=== PATIENT | male | born 1940 | race Caucasian/White ===

== ENCOUNTER 2018-02-26 17:47 | Inpatient (IN) | payer MEDICARE, MEDICAID ==
[~2018-02-26] VITALS: Ht 177.8 cm; Wt 88.0 kg
--- OUTSIDE RECORDS SUMMARY | 2018-02-26 17:59 | XMS REPORT ---
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 Active 28215633 Problem Gastroesophageal reflux disease, esophagitis presence not specified K21.9 Active 164138032 Problem Dementia without behavioral disturbance, unspecified dementia type F03.90 Active 85065346 Problem Type 2 diabetes mellitus with hypoglycemia without coma, 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 E11.649 Active 22594293 Problem Mixed incontinence urge and stress N39.46 Active 438313277 Problem Essential hypertension I10 Active 94700993 Problem Frequent falls R29.6 Active 452961034 Problem Primary insomnia F51.01 Active 5607956 Problem Chronic atrial fibrillation I48.2 Active 245074115 ALLERGIES No Information ENCOUNTERS Encounter Location Date Diagnosis [facility] [address] [place] [address] [id number] Feb, Anasarca R60.1 and Type 2 diabetes mellitus with hypoglycemia without coma, without long-term current use of insulin E11.649 [place] [address] [place] [id number] [place] [address] 96797- 6140 Feb, Primary insomnia F51.01 [place] [address] [place] [id number] [place] [address] 47289- 6134 Feb, [place] [address] [place] [address] 65854- 1343 Feb, [facility] [address] [place] [address] [id number] Feb, Anasarca R60.1 and Pneumonia of left lower lobe due to infectious organism J18.1 [place] [address] [place] [address] 41903- 6309 Feb, Mixed incontinence urge and stress N39.46 [place] [address] [place] [id number] [place] [address] 98352- 5618 Jan, [place] [address] 48367- 4951 Jan, Primary insomnia F51.01 [facility] [address] [place] [id number] Jan, Cough R05 and Essential hypertension I10 [place] [address] 30611- 9808 Jan, [facility] [address] [place] [id number] Jan, [place] [address] 98598- 6123 Jan, [place] [address] 26747- 2992 Jan, Upper respiratory tract infection, unspecified type J06.9 [place] [address] 95015- 8471 Jan, [facility] [address] [place] [id number] Dec, Impacted cerumen of both ears H61.23 [place] [address] [place] [id number] [place] [address] 56293- 5778 Dec, [facility] [address] [place] [id number] Dec, Dementia without behavioral disturbance, unspecified dementia type F03.90 [place] [address] [place] [id number] [place] [address] 59333- 2730 Nov, Dementia without behavioral disturbance, unspecified dementia type F03.90 [facility] [address] [place] [id number] Nov, [facility] [address] [place] [id number] Oct, Cough R05 [facility] [address] [place] [id number] [address] 96[address] Oct, Hypokalemia E87.6 [place] [address] [address] 69[address] Oct, [facility] [address] [place] [id number] Oct, Encounter for examination for admission to intermediate Z02.2 ; Frequent falls R29.6 ; Type 2 diabetes mellitus with chronic kidney disease, without long-term current use of insulin, 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 ; Dementia without behavioral disturbance, unspecified dementia type F03.90 ; Renal insufficiency N28.9 ; Essential hypertension I10 ; Chronic atrial fibrillation I48.2 and Gastroesophageal reflux disease, esophagitis presence not specified K21.9 [place] [address] [place] [id number] [address] Oct, [place] [facility] [address] [place] [id number] [address] 8644 Oct, IMMUNIZATIONS No Known Immunizations SOCIAL HISTORY Never Assessed REASON FOR VISIT Edema PLAN OF CARE VITAL SIGNS MEDICATIONS Unknown Medications RESULTS No Results PROCEDURES No Known procedures INSTRUCTIONS MEDICATIONS ADMINISTERED No Known Medications MEDICAL (GENERAL) HISTORY Type Description Date Surgical History No Surgical history information
--- OUTSIDE RECORDS SUMMARY | 2018-02-26 17:59 | XMS REPORT ---
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 Active 45567567 Problem Gastroesophageal reflux disease, esophagitis presence not specified K21.9 Active 962748311 Problem Dementia without behavioral disturbance, unspecified dementia type F03.90 Active 46159494 Problem Type 2 diabetes mellitus with hypoglycemia without coma, 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 E11.649 Active 20214075 Problem Mixed incontinence urge and stress N39.46 Active 845445106 Problem Essential hypertension I10 Active 78868804 Problem Frequent falls R29.6 Active 807531836 Problem Primary insomnia F51.01 Active 0843165 Problem Chronic atrial fibrillation I48.2 Active 844274134 ALLERGIES No Information ENCOUNTERS Encounter Location Date Diagnosis [place] [address] [place] [address] 93749- 5553 Feb, Primary insomnia F51.01 [facility] [address] [place] [id number] Feb, Anasarca R60.1 and Type 2 diabetes mellitus with hypoglycemia without coma, without long-term current use of insulin E11.649 [facility] [address] [place] [id number] [place] [address] 32845- 8764 Feb, Primary insomnia F51.01 [facility] [address] [place] [address] 40000- 0491 Feb, [facility] [address] [place] [id number] [place] [address] 75544- 7595 Feb, [facility] [address] [place] [id number] Feb, Anasarca R60.1 and Pneumonia of left lower lobe due to infectious organism J18.1 [place] [address] [place] [id number] [place] [address] 502959- 6612 Feb, Mixed incontinence urge and stress N39.46 [place] [address] [place] [id number] [place] [address] 19702- 1667 Jan, [place] [address] 47433- 7044 Jan, Primary insomnia F51.01 [facility] [address] [place] [id number] Jan, Cough R05 and Essential hypertension I10 [place] [address] [place] [id number] [place] [address] 54381- 7401 Jan, [facility] [address] [place] [id number] Jan, [place] [address] [place] [id number] [place] [address] 43673- 0413 Jan, [place] [address] 62655- 7460 Jan, Upper respiratory tract infection, unspecified type J06.9 [place] [address] [place] [id number] [place] [address] 96112- 9631 Jan, [facility] [address] [place] [id number] Dec, Impacted cerumen of both ears H61.23 [place] [address] [place] [id number] [place] [address] 80877- 0782 Dec, [facility] [address] [place] [id number] Dec, Dementia without behavioral disturbance, unspecified dementia type F03.90 [place] [address] [place] [address] 45916- 8977 Nov, Dementia without behavioral disturbance, unspecified dementia type F03.90 [facility] [address] [place] [id number] Nov, [facility] [address] [place] [id number] Oct, Cough R05 [place] [address] [place] [address] 047781- 4306 Oct, Hypokalemia E87.6 [place] [address] [place] [id number] [place] [address] 72175- 0895 Oct, [facility] [address] [place] [id number] Oct, Encounter for examination for admission to senior care Z02.2 ; Frequent falls R29.6 ; Type 2 diabetes mellitus with chronic kidney disease, without long-term current use of insulin, 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 ; Dementia without behavioral disturbance, unspecified dementia type F03.90 ; Renal insufficiency N28.9 ; Essential hypertension I10 ; Chronic atrial fibrillation I48.2 and Gastroesophageal reflux disease, esophagitis presence not specified K21.9 [place] [address] [place] [id number] [address]- 1774 Oct, [place] [address] [facility] [id number] [address] 6721 Oct, IMMUNIZATIONS No Known Immunizations SOCIAL HISTORY Never Assessed REASON FOR VISIT Daily weight PLAN OF CARE VITAL SIGNS MEDICATIONS Unknown Medications RESULTS No Results PROCEDURES No Known procedures INSTRUCTIONS MEDICATIONS ADMINISTERED No Known Medications MEDICAL (GENERAL) HISTORY Type Description Date Surgical History No Surgical history information
--- OUTSIDE RECORDS SUMMARY | 2018-02-26 17:59 | XMS REPORT ---
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1 and Pneumonia of left lower lobe due to infectious organism J18.1 [address] [place] [address] 90091- 1975 Feb, Mixed incontinence urge and stress N39.46 [place] [address] [place] [id number] [place] [address] 40693- 1992 Jan, [address] 30542- 7836 Jan, Primary insomnia F51.01 [facility] [place] [id number] Jan, Cough R05 and Essential hypertension I10 [place] [address] [address]- 5408 Jan, [facility] [address] [place] [id number] Jan, [place] [address] [place] [id number] [place] [address] 55925778- 5189 Jan, [place] [address] [place] [id number] [place] [address] 69590- 1667 Jan, Upper respiratory tract infection, unspecified type J06.9 [place] [address] [place] [id number] [place] [address] 37388- 1423 Jan, [facility] [address] [place] [id number] Dec, Impacted cerumen of both ears H61.23 [place] [address] [place] [id number] [place] [address] 99744- 5644 Dec, [facility] [address] [place] [id number] Dec, Dementia without behavioral disturbance, unspecified dementia type F03.90 [place] [address] [place] [address] 39924- 8573 Nov, Dementia without behavioral disturbance, unspecified dementia type F03.90 [facility] [address] [place] [id number] Nov, [facility] [address] [place] [id number] Oct, Cough R05 [place] [address] [place] [address] 94363- 8864 Oct, Hypokalemia E87.6 [place] [address] [place] [address] 85820- 9702 Oct, [facility] [address] [place] [id number] Oct, Encounter for examination for admission to [facility] Z02.2 ; Frequent falls R29.6 ; Type 2 diabetes mellitus with chronic kidney disease, without long-term current use of insulin, 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 ; Dementia without behavioral disturbance, unspecified dementia type F03.90 ; Renal insufficiency N28.9 ; Essential hypertension I10 ; Chronic atrial fibrillation I48.2 and Gastroesophageal reflux disease, esophagitis presence not specified K21.9 [facility] [address] [facility] [id number] [place] [address]- 6627 Oct, [facility] [address] [facility] [id number] [place] [address]- 6889 Oct, IMMUNIZATIONS No Known Immunizations SOCIAL HISTORY Never Assessed REASON FOR VISIT continued cough PLAN OF CARE Activity Details Follow Up prn Reason: VITAL SIGNS MEDICATIONS Medication Instructions Dosage Frequency Start Date End Date Duration Status Sertraline HCl 50 MG Orally Once a day 1 tablet 24h Active Carvedilol 25 MG Orally 2 times a day 1 tablet 12h Active GlyBURIDE 5 mg Orally twice a day 2 tablets 12h Active Multivitamin Adults - Active Rivaroxaban 20 MG Orally Once a day 1 tablet with food 24h Active Tamsulosin HCl 0.4 MG Orally Once a day 1 capsule 24h Active Donepezil HCl 5 MG Orally Once a day 1 tablet at bedtime 24h Active Nystatin 008792 UNIT/GM Externally Twice a day 1 application 12h Active Hydrocodone-Acetaminophen 5-325 MG Orally every 6 hrs 1 tablet as needed 6h Jan, Active Amlodipine Besylate 5 mg Orally Once a day 1 tablet 24h Jan, 30 day(s) Active RESULTS No Results PROCEDURES Procedure Date Ordered Result Body Site Minor complication (15 mins) Jan 29, 2018 INSTRUCTIONS MEDICATIONS ADMINISTERED No Known Medications MEDICAL (GENERAL) HISTORY Type Description Date Surgical History No Surgical history information
--- OUTSIDE RECORDS SUMMARY | 2018-02-26 17:59 | XMS REPORT ---
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 Active 34399071 Problem Gastroesophageal reflux disease, esophagitis presence not specified K21.9 Active 198195220 Problem Dementia without behavioral disturbance, unspecified dementia type F03.90 Active 46872468 Problem Type 2 diabetes mellitus with hypoglycemia without coma, 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 E11.649 Active 63607125 Problem Mixed incontinence urge and stress N39.46 Active 897997557 Problem Essential hypertension I10 Active 88697314 Problem Frequent falls R29.6 Active 999676761 Problem Primary insomnia F51.01 Active 5005199 Problem Chronic atrial fibrillation I48.2 Active 985084695 ALLERGIES No Information ENCOUNTERS Encounter Location Date Diagnosis [facility] [address] [place] [address] [id number] Feb, Anasarca R60.1 and Type 2 diabetes mellitus with hypoglycemia without coma, without long-term current use of insulin E11.649 [place] [address] [place] [id number] [place] [address] 61331- 3935 Feb, Primary insomnia F51.01 [place] [address] [place] [id number] [place] [address] 32028- 9463 Feb, [place] [address] [place] [address] 93400- 2842 Feb, [facility] [address] [place] [address] [id number] Feb, Anasarca R60.1 and Pneumonia of left lower lobe due to infectious organism J18.1 [place] [address] [place] [address] 93039- 4963 Feb, Mixed incontinence urge and stress N39.46 [place] [address] [place] [id number] [place] [address] 10441- 4537 Jan, [place] [address] 96893- 9843 Jan, Primary insomnia F51.01 [facility] [address] [place] [id number] Jan, Cough R05 and Essential hypertension I10 [place] [address] 28776- 5293 Jan, [facility] [address] [place] [id number] Jan, [place] [address] 53489- 4252 Jan, [place] [address] 65442- 1195 Jan, Upper respiratory tract infection, unspecified type J06.9 [place] [address] 95938- 7525 Jan, [facility] [address] [place] [id number] Dec, Impacted cerumen of both ears H61.23 [place] [address] [place] [id number] [place] [address] 91267- 8738 Dec, [facility] [address] [place] [id number] Dec, Dementia without behavioral disturbance, unspecified dementia type F03.90 [place] [address] [place] [id number] [place] [address] 25395- 5247 Nov, Dementia without behavioral disturbance, unspecified dementia type F03.90 [facility] [address] [place] [id number] Nov, [facility] [address] [place] [id number] Oct, Cough R05 [place] [address] [facility] [id number] [address]- 6790 Oct, Hypokalemia E87.6 [place] [address] [place] [id number] [address]- 9563 Oct, [facility] [address] [place] [id number] Oct, Encounter for examination for admission to [facility] Z02.2 ; Frequent falls R29.6 ; Type 2 diabetes mellitus with chronic kidney disease, without long-term current use of insulin, 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 ; Dementia without behavioral disturbance, unspecified dementia type F03.90 ; Renal insufficiency N28.9 ; Essential hypertension I10 ; Chronic atrial fibrillation I48.2 and Gastroesophageal reflux disease, esophagitis presence not specified K21.9 [place] [address] [place] [id number], [place] [address]- 0869 Oct, [place] [address] [place] [id number], [place] [address]- 3438 Oct, IMMUNIZATIONS No Known Immunizations SOCIAL HISTORY Never Assessed REASON FOR VISIT Put med under appropriate Dx PLAN OF CARE VITAL SIGNS MEDICATIONS Medication Instructions Dosage Frequency Start Date End Date Duration Status Tamsulosin HCl 0.4 MG Orally Once a day 1 capsule 24h Active RESULTS No Results PROCEDURES No Known procedures INSTRUCTIONS MEDICATIONS ADMINISTERED No Known Medications MEDICAL (GENERAL) HISTORY Type Description Date Surgical History No Surgical history information
--- OUTSIDE RECORDS SUMMARY | 2018-02-26 17:59 | XMS REPORT ---
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 Active 71831202 Problem Gastroesophageal reflux disease, esophagitis presence not specified K21.9 Active 840097107 Problem Dementia without behavioral disturbance, unspecified dementia type F03.90 Active 58353328 Problem Type 2 diabetes mellitus with hypoglycemia without coma, 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 E11.649 Active 62769283 Problem Mixed incontinence urge and stress N39.46 Active 133936201 Problem Essential hypertension I10 Active 69602729 Problem Frequent falls R29.6 Active 024284893 Problem Primary insomnia F51.01 Active 0845227 Problem Chronic atrial fibrillation I48.2 Active 330539153 ALLERGIES Substance Reaction Event Type Date Status Norvasc anasarca Drug Allergy Feb, Active ENCOUNTERS Encounter Location Date Diagnosis [place] [address] [place] [address] 55284- 9280 Feb, [place] [address] [place] [address] 53939- 5049 Feb, Primary insomnia F51.01 [facility] [address] [place] [id number] Feb, Anasarca R60.1 and Type 2 diabetes mellitus with hypoglycemia without coma, without long-term current use of insulin E11.649 [place] [address] [place] [id number] [address]- 7449 Feb, Primary insomnia F51.01 [place] [address] [place] [id number] [place] [address] 69133- 9126 Feb, [place] [address] 72237- 8587 Feb, [facility] [address] [place] [id number] Feb, Anasarca R60.1 and Pneumonia of left lower lobe due to infectious organism J18.1 [place] [address] 41788- 1349 Feb, Mixed incontinence urge and stress N39.46 [place] [address] 92654- 9441 Jan, [place] [address] 16504- 3870 Jan, Primary insomnia F51.01 [facility] [address] [place] [id number] Jan, Cough R05 and Essential hypertension I10 [place] [address] 38783- 5327 Jan, [facility] [address] [place] [id number] Jan, [place] [address] 47052- 8855 Jan, [place] [address] 43150- 8484 Jan, Upper respiratory tract infection, unspecified type J06.9 [place] [address] 70469- 4379 Jan, [facility] [address] [place] [id number] Dec, Impacted cerumen of both ears H61.23 [place] [address] 10992- 2466 Dec, [facility] [address] [place] [id number] Dec, Dementia without behavioral disturbance, unspecified dementia type F03.90 [place] [address] [place] [id number] [address] 2546 Nov, Dementia without behavioral disturbance, unspecified dementia type F03.90 [facility] [address] [place] [id number] Nov, [facility] [address] [place] [id number] Oct, Cough R05 [place] [address] [place] [address] 26884- 2636 18 Oct, 2017 Hypokalemia E87.6 [place] [address] [place] [id number] [place] [address] 80879- 7880 14 Oct, 2017 [facility] [address] [place] [id number] Oct, Encounter for examination for admission to [facility] Z02.2 ; Frequent falls R29.6 ; Type 2 diabetes mellitus with chronic kidney disease, without long-term current use of insulin, 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 ; Dementia without behavioral disturbance, unspecified dementia type F03.90 ; Renal insufficiency N28.9 ; Essential hypertension I10 ; Chronic atrial fibrillation I48.2 and Gastroesophageal reflux disease, esophagitis presence not specified K21.9 [place] [address] [place] [address] 38282- 9707 Oct, [place] [address] [place] [address] 57075- 0640 Oct, IMMUNIZATIONS No Known Immunizations SOCIAL HISTORY Never Assessed REASON FOR VISIT FU on swelling--[place] [facility] PLAN OF CARE Activity Details Follow Up prn Reason: VITAL SIGNS MEDICATIONS Medication Instructions Dosage Frequency Start Date End Date Duration Status Potassium Chloride Stacey ER 20 meq Orally Once a day 1 tablet with food 24h Feb, Feb, 14 days Active Lasix 40 mg Orally Once a day 1 tablet 24h Feb, 14 days Active GlyBURIDE 5 mg Orally twice a day 1 tablet with breakfast or the first main meal of the day 12h Feb, 30 day(s) Active Probiotic - as directed Active Melatonin 3 MG Orally Once a day 2 tablet at bedtime as needed with food 24h Jan, Active Levaquin 500 mg Orally Once a day 1 tablet 24h 02 Feb, 2018 Feb, 10 day(s) Active RESULTS No Results PROCEDURES Procedure Date Ordered Result Body Site Minor complication (15 mins) Feb 12, 2018 INSTRUCTIONS MEDICATIONS ADMINISTERED No Known Medications MEDICAL (GENERAL) HISTORY Type Description Date Surgical History No Surgical history information
--- OUTSIDE RECORDS SUMMARY | 2018-02-26 17:59 | XMS REPORT ---
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 Active 05776936 Problem Gastroesophageal reflux disease, esophagitis presence not specified K21.9 Active 226191819 Problem Dementia without behavioral disturbance, unspecified dementia type F03.90 Active 31613372 Problem Type 2 diabetes mellitus with hypoglycemia without coma, 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 E11.649 Active 01199411 Problem Mixed incontinence urge and stress N39.46 Active 809771193 Problem Essential hypertension I10 Active 90455754 Problem Frequent falls R29.6 Active 326457612 Problem Primary insomnia F51.01 Active 3514484 Problem Chronic atrial fibrillation I48.2 Active 829326333 ALLERGIES Substance Reaction Event Type Date Status Norvas anasarca Drug Allergy Feb, Active ENCOUNTERS Encounter Location Date Diagnosis [facility] [address] [place] [id number] Feb, Anasarca R60.1 and Type 2 diabetes mellitus with hypoglycemia without coma, without long-term current use of insulin E11.649 [facility] [address] [facility] [id number], [place] [address] Feb, Primary insomnia F51.01 [facility] [address] [place] [id number] [place] [address]99- 9158 Feb, [facility] [address] [place] [address] [id number] [place] [address] 64968- 6627 Feb, [facility] [address] [place] [address] [id number] Feb, Anasarca R60.1 and Pneumonia of left lower lobe due to infectious organism J18.1 [place] [address] [address]- [address] Feb, Mixed incontinence urge and stress N39.46 [place] [address] [place] [id number] [place] [address] 06381- 4107 Jan, [place] [address] [address]- 6[address] Jan, Primary insomnia F51.01 [facility] [address] [place] [id number] Jan, Cough R05 and Essential hypertension I10 [place] [address] [address]- [address] Jan, [facility] [address] [place] [id number] Jan, [place] [address] [address]- 4708 Jan, [place] [address] 68608- 2459 Jan, Upper respiratory tract infection, unspecified type J06.9 [place] [address] [place] [id number] [place] [address] 33046- 2486 Jan, [facility] [address] [place] [id number] Dec, Impacted cerumen of both ears H61.23 [place] [address] [place] [id number] [place] [address] 84633- 0787 Dec, [facility] [address] [place] [id number] Dec, Dementia without behavioral disturbance, unspecified dementia type F03.90 [place] [address] [place] [id number] [place] [address]88 2546 Nov, Dementia without behavioral disturbance, unspecified dementia type F03.90 [facility] [address] [place] [id number] Nov, [facility] [address] [place] [id number] Oct, Cough R05 [place] [address] [facility] [id number] [address] 18 Oct, 2017 Hypokalemia E87.6 [place] [address] [facility] [id number] [address] 14 Oct, 2017 [facility] [address] [place] [id number] Oct, 2017 Encounter for examination for admission to care home Z02.2 ; Frequent falls R29.6 ; Type 2 diabetes mellitus with chronic kidney disease, without long-term current use of insulin, 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 ; Dementia without behavioral disturbance, unspecified dementia type F03.90 ; Renal insufficiency N28.9 ; Essential hypertension I10 ; Chronic atrial fibrillation I48.2 and Gastroesophageal reflux disease, esophagitis presence not specified K21.9 [place] [address] [facility] [id number], [place] [address] Oct, [place] [address] [facility] [id number] [id number] Oct, IMMUNIZATIONS No Known Immunizations SOCIAL HISTORY Never Assessed REASON FOR VISIT Custodial Visit --HOLLAND Griggs PLAN OF CARE Activity Details Follow Up prn Reason: VITAL SIGNS MEDICATIONS Medication Instructions Dosage Frequency Start Date End Date Duration Status Levaquin 500 mg Orally Once a day 1 tablet 24h Feb, Feb, 10 day(s) Active Lasix 40 mg Orally Once a day 1 tablet 24h Feb, 14 days Active Potassium Chloride Stacey ER 20 meq Orally Once a day 1 tablet with food 24h Feb, Feb, 14 days Active RESULTS No Results PROCEDURES Procedure Date Ordered Result Body Site Minor complication (15 mins) Feb 05, 2018 INSTRUCTIONS MEDICATIONS ADMINISTERED No Known Medications MEDICAL (GENERAL) HISTORY Type Description Date Surgical History No Surgical history information
--- OUTSIDE RECORDS SUMMARY | 2018-02-26 17:59 | XMS REPORT ---
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 Active 40173695 Problem Gastroesophageal reflux disease, esophagitis presence not specified K21.9 Active 976162180 Problem Dementia without behavioral disturbance, unspecified dementia type F03.90 Active 19250589 Problem Type 2 diabetes mellitus with hypoglycemia without coma, 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 E11.649 Active 47482667 Problem Mixed incontinence urge and stress N39.46 Active 279288719 Problem Essential hypertension I10 Active 72746220 Problem Frequent falls R29.6 Active 968321391 Problem Primary insomnia F51.01 Active 4272091 Problem Chronic atrial fibrillation I48.2 Active 800420204 ALLERGIES No Information ENCOUNTERS Encounter Location Date Diagnosis [place] [address] [place] [address] 25091- 3894 Feb, [place] [address] [place] [address] 32385- 1006 Feb, Primary insomnia F51.01 [facility] [address] [place] [id number] Feb, Anasarca R60.1 and Type 2 diabetes mellitus with hypoglycemia without coma, without long-term current use of insulin E11.649 [place] [address] [place] [address] 78201- 9884 Feb, Primary insomnia F51.01 [place] [address] [place] [id number] [place] [address] 71751- 3902 Feb, [place] [address] [place] [id number] [place] [address] 79952- 0193 Feb, [facility] [address] [place] [id number] Feb, Anasarca R60.1 and Pneumonia of left lower lobe due to infectious organism J18.1 [place] [address] [address]- 2170 Feb, Mixed incontinence urge and stress N39.46 [place] [address] [address]647- 4926 Jan, [place] [address] 71432- 4405 Jan, Primary insomnia F51.01 [facility] [address] [place] [id number] Jan, Cough R05 and Essential hypertension I10 [place] [address] 60909- 8081 Jan, [facility] [address] [place] [id number] Jan, [place] [address] [address]37- 6724 Jan, [place] [address] 19084- 9435 Jan, Upper respiratory tract infection, unspecified type J06.9 [place] [address] 38430- 8337 Jan, [facility] [address] [place] [id number] Dec, Impacted cerumen of both ears H61.23 [place] [address] 09124- 2609 Dec, [facility] [address] [place] [id number] Dec, Dementia without behavioral disturbance, unspecified dementia type F03.90 [place] [address] 92009 2546 Nov, Dementia without behavioral disturbance, unspecified dementia type F03.90 [facility] [address] [place] [id number] Nov, [facility] [address] [place] [id number] Oct, Cough R05 [place] [address] [place] [id number], [place] [address] 2546 Oct, Hypokalemia E87.6 [place] [address] [place] [id number] [place] [address] 81221- 4596 14 Oct, 2017 [facility] [address] [place] [id number] Oct, Encounter for examination for admission to group home Z02.2 ; Frequent falls R29.6 ; Type 2 diabetes mellitus with chronic kidney disease, without long-term current use of insulin, 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 ; Dementia without behavioral disturbance, unspecified dementia type F03.90 ; Renal insufficiency N28.9 ; Essential hypertension I10 ; Chronic atrial fibrillation I48.2 and Gastroesophageal reflux disease, esophagitis presence not specified K21.9 [place] [address] [place] [id number], [place] [address] Oct, [place] [address] [place] [id number] [place] [address] 57925- 6776 Oct, IMMUNIZATIONS No Known Immunizations SOCIAL HISTORY Never Assessed REASON FOR VISIT melatonin increase PLAN OF CARE VITAL SIGNS MEDICATIONS Medication Instructions Dosage Frequency Start Date End Date Duration Status Melatonin 3 MG Orally Once a day 2 tablet at bedtime as needed with food 24h Jan, Active RESULTS No Results PROCEDURES No Known procedures INSTRUCTIONS MEDICATIONS ADMINISTERED No Known Medications MEDICAL (GENERAL) HISTORY Type Description Date Surgical History No Surgical history information
--- OUTSIDE RECORDS SUMMARY | 2018-02-26 17:59 | XMS REPORT ---
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 Active 76370679 Problem Mixed incontinence urge and stress N39.46 Active 234309306 Problem Primary insomnia F51.01 Active 7554315 Problem Frequent falls R29.6 Active 669362192 Problem Gastroesophageal reflux disease, esophagitis presence not specified K21.9 Active 930860280 Problem Chronic atrial fibrillation I48.2 Active 483150396 Problem Essential hypertension I10 Active 04124235 ALLERGIES No Information ENCOUNTERS Encounter Location Date Diagnosis [place] [id number] [place] [address] 39438- 5723 Feb, [facility] [address] [place] [address] [id number] Feb, Anasarca R60.1 and Pneumonia of left lower lobe due to infectious organism J18.1 [address] [place] [address] 70123- 2763 Feb, Mixed incontinence urge and stress N39.46 [place] [address] [place] [id number] [place] [address] 02000- 9257 Jan, [address] [address]- 8913 Jan, Primary insomnia F51.01 [facility] [place] [id number] Jan, Cough R05 and Essential hypertension I10 [place] [address] [address] Jan, [facility] [address] [place] [id number] Jan, [place] [address] [place] [id number] [place] [address] 35770221- 4410 Jan, [place] [address] [place] [id number] [place] [address] 06648- 3197 Jan, Upper respiratory tract infection, unspecified type J06.9 [place] [address] [place] [id number] [place] [address] 91829- 0465 Jan, [facility] [address] [place] [id number] Dec, Impacted cerumen of both ears H61.23 [place] [address] [place] [id number] [place] [address] 52741- 0891 Dec, [facility] [address] [place] [id number] Dec, Dementia without behavioral disturbance, unspecified dementia type F03.90 [place] [address] [place] [address] 45976- 4401 Nov, Dementia without behavioral disturbance, unspecified dementia type F03.90 [facility] [address] [place] [id number] Nov, [facility] [address] [place] [id number] Oct, Cough R05 [place] [address] [place] [address] 52869- 0601 Oct, Hypokalemia E87.6 [place] [address] [place] [address] 60915- 6206 Oct, [facility] [address] [place] [id number] Oct, Encounter for examination for admission to alf Z02.2 ; Frequent falls R29.6 ; Type 2 diabetes mellitus with chronic kidney disease, without long-term current use of insulin, 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 ; Dementia without behavioral disturbance, unspecified dementia type F03.90 ; Renal insufficiency N28.9 ; Essential hypertension I10 ; Chronic atrial fibrillation I48.2 and Gastroesophageal reflux disease, esophagitis presence not specified K21.9 [facility] [address] [facility] [id number] [place] [id number]81 Oct, [facility] [address] [facility] [id number] [id number] Oct, IMMUNIZATIONS No Known Immunizations SOCIAL HISTORY Never Assessed REASON FOR VISIT order for Melatonin PLAN OF CARE VITAL SIGNS MEDICATIONS Medication Instructions Dosage Frequency Start Date End Date Duration Status Melatonin 3 MG Orally Once a day 1 tablet at bedtime as needed with food 24h Jan, 30 day(s) Active RESULTS No Results PROCEDURES No Known procedures INSTRUCTIONS MEDICATIONS ADMINISTERED No Known Medications MEDICAL (GENERAL) HISTORY Type Description Date Surgical History No Surgical history information
--- OUTSIDE RECORDS SUMMARY | 2018-02-26 18:00 | XMS REPORT ---
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 Active 03996213 Problem Mixed incontinence urge and stress N39.46 Active 047283566 Problem Primary insomnia F51.01 Active 8022929 Problem Frequent falls R29.6 Active 713051310 Problem Gastroesophageal reflux disease, esophagitis presence not specified K21.9 Active 454895186 Problem Chronic atrial fibrillation I48.2 Active 854674414 Problem Essential hypertension I10 Active 89853107 ALLERGIES No Information ENCOUNTERS Encounter Location Date Diagnosis [facility] [place] [id number] Feb, Anasarca R60.1 and Pneumonia of left lower lobe due to infectious organism J18.1 [place] [address] [place] [id number] [place] [address] 64478- 7540 Feb, Mixed incontinence urge and stress N39.46 [facility] [address] [place] [id number] [place] [address] 91184- 4356 Jan, [facility] [address] [place] [id number] [place] [address] 87984- 6253 Jan, Primary insomnia F51.01 [facility] [address] [place] [id number] Jan, Cough R05 and Essential hypertension I10 [facility] [address] [place] [address] 06424- 2325 Jan, [facility] [address] [place] [id number] Jan, [place] [address] [place] [id number] [place] [address] 01914- 1119 Jan, [place] [address] [place] [id number] [place] [address] 38878- 5496 Jan, Upper respiratory tract infection, unspecified type J06.9 [place] [address] 92166- 3003 Jan, [facility] [address] [place] [id number] Dec, Impacted cerumen of both ears H61.23 [place] [address] 59873- 3636 Dec, [facility] [address] [place] [id number] Dec, Dementia without behavioral disturbance, unspecified dementia type F03.90 [place] [address] [place] [id number] [place] [address] 36204- 1216 Nov, Dementia without behavioral disturbance, unspecified dementia type F03.90 [facility] [address] [place] [id number] Nov, [facility] [address] [place] [id number] Oct, Cough R05 [place] [address] [place] [id number] [place] [address] 24956- 7511 Oct, Hypokalemia E87.6 [place] [address] [place] [id number] [place] [address] 54565825- 1765 Oct, [facility] [address] [place] [id number] Oct, Encounter for examination for admission to care home Z02.2 ; Frequent falls R29.6 ; Type 2 diabetes mellitus with chronic kidney disease, without long-term current use of insulin, 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 ; Dementia without behavioral disturbance, unspecified dementia type F03.90 ; Renal insufficiency N28.9 ; Essential hypertension I10 ; Chronic atrial fibrillation I48.2 and Gastroesophageal reflux disease, esophagitis presence not specified K21.9 [facility] [address] [facility] [id number] [place] [phone]- 2135 Oct, [facility] [address] [facility] [id number]- 7836 Oct, IMMUNIZATIONS No Known Immunizations SOCIAL HISTORY Never Assessed REASON FOR VISIT not feeling well PLAN OF CARE VITAL SIGNS MEDICATIONS Medication Instructions Dosage Frequency Start Date End Date Duration Status Cefuroxime Axetil 250 MG Orally every 12 hrs 1 tablet 12h Jan, Jan, 5 days Active RESULTS No Results PROCEDURES No Known procedures INSTRUCTIONS MEDICATIONS ADMINISTERED No Known Medications MEDICAL (GENERAL) HISTORY Type Description Date Surgical History No Surgical history information
--- OUTSIDE RECORDS SUMMARY | 2018-02-26 18:00 | XMS REPORT ---
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 Active 34593031 Problem Mixed stress and urge urinary incontinence N39.46 Active 563606513 Problem Primary insomnia F51.01 Active 6680819 Problem Chronic atrial fibrillation I48.2 Active 147484908 Problem Gastroesophageal reflux disease, esophagitis presence not specified K21.9 Active 126561991 Problem Dementia without behavioral disturbance, unspecified dementia type F03.90 Active 54276011 Problem Essential hypertension I10 Active 36799518 Problem Frequent falls R29.6 Active 549250399 ALLERGIES No Information ENCOUNTERS Encounter Location Date Diagnosis [facility] [address] [address]- [address]153 Jan, [facility] [address] [place] [id number] [place] [address] 04153- 8832 Jan, Primary insomnia F51.01 [facility] [address] [place] [id number] Jan, Cough R05 and Essential hypertension I10 [facility] [address] [place] [id number] [place] [address] 74452- 7901 Jan, [facility] [address] [place] [id number] Jan, [facility] [address] [place] [id number] [place] [address] 77967- 7734 Jan, [facility] [address] [place] [id number] [place] [address] 93750- 6770 Jan, Upper respiratory tract infection, unspecified type J06.9 [place] [address] [place] [id number] [address]- 2190 Jan, [facility] [address] [place] [id number] Dec, Impacted cerumen of both ears H61.23 [place] [address] [place] [id number] [place] [address] 25370- 2033 Dec, [facility] [address] [place] [id number] Dec, Dementia without behavioral disturbance, unspecified dementia type F03.90 [place] [address] [place] [id number] [place] [address] 52211- 2147 Nov, Dementia without behavioral disturbance, unspecified dementia type F03.90 [facility] [address] [place] [id number] Nov, [facility] [address] [place] [id number] Oct, Cough R05 [place] [address] [place] [address] 60414853- 6601 Oct, Hypokalemia E87.6 [place] [address] [place] [address] 95225- 5930 Oct, [facility] [address] [place] [id number] Oct, Encounter for examination for admission to correction Z02.2 ; Frequent falls R29.6 ; Type 2 diabetes mellitus with chronic kidney disease, without long-term current use of insulin, 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 ; Dementia without behavioral disturbance, unspecified dementia type F03.90 ; Renal insufficiency N28.9 ; Essential hypertension I10 ; Chronic atrial fibrillation I48.2 and Gastroesophageal reflux disease, esophagitis presence not specified K21.9 [place] [address] [place] [address] [phone]- 6032 Oct, [place] [address] [place] [address] [phone]- 8577 Oct, IMMUNIZATIONS No Known Immunizations SOCIAL HISTORY Never Assessed REASON FOR VISIT elevated BPs PLAN OF CARE VITAL SIGNS MEDICATIONS Medication Instructions Dosage Frequency Start Date End Date Duration Status Carvedilol 25 MG Orally 2 times a day 1 tablet 12h Active RESULTS No Results PROCEDURES No Known procedures INSTRUCTIONS MEDICATIONS ADMINISTERED No Known Medications
--- OUTSIDE RECORDS SUMMARY | 2018-02-26 18:00 | XMS REPORT ---
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, 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 Active 28839253 Problem Mixed incontinence urge and stress N39.46 Active 868021572 Problem Primary insomnia F51.01 Active 7038015 Problem Frequent falls R29.6 Active 890709777 Problem Gastroesophageal reflux disease, esophagitis presence not specified K21.9 Active 819954171 Problem Chronic atrial fibrillation I48.2 Active 465273928 Problem Essential hypertension I10 Active 32319818 ALLERGIES No Information ENCOUNTERS Encounter Location Date Diagnosis [place] [id number] [place] [address] 16642- 8645 Feb, [employer] [address] [place] [id number] Feb, Anasarca R60.1 and Pneumonia of left lower lobe due to infectious organism J18.1 [address] [place] [address] 01198- 9197 Feb, Mixed incontinence urge and stress N39.46 [place] [address] [place] [id number] [place] [address] 17282- 7705 Jan, [address] [address] Jan, Primary insomnia F51.01 [facility] [facility] [place] [id number] Jan, Cough R05 and Essential hypertension I10 [place] [address] [address] Jan, [facility] [address] [place] [id number] Jan, [place] [address] [place] [id number] [place] [address] [phone] Jan, [place] [address] [place] [id number] [place] [address] 89532- 3628 Jan, Upper respiratory tract infection, unspecified type J06.9 [place] [address] [place] [id number] [place] [address] 40598- 2152 Jan, [facility] [address] [place] [id number] Dec, Impacted cerumen of both ears H61.23 [place] [address] [place] [id number] [place] [address] 20499- 0165 Dec, [facility] [address] [place] [id number] Dec, Dementia without behavioral disturbance, unspecified dementia type F03.90 [place] [address] [place] [address] 68362- 5699 Nov, Dementia without behavioral disturbance, unspecified dementia type F03.90 [facility] [address] [place] [id number] Nov, [facility] [address] [place] [id number] Oct, Cough R05 [place] [address] [place] [address] 68560- 5991 Oct, Hypokalemia E87.6 [place] [address] [place] [address] 45828- 1465 Oct, [facility] [address] [place] [id number] Oct, Encounter for examination for admission to long term Z02.2 ; Frequent falls R29.6 ; Type 2 diabetes mellitus with chronic kidney disease, without long-term current use of insulin, 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 ; Dementia without behavioral disturbance, unspecified dementia type F03.90 ; Renal insufficiency N28.9 ; Essential hypertension I10 ; Chronic atrial fibrillation I48.2 and Gastroesophageal reflux disease, esophagitis presence not specified K21.9 [facility] [address] [facility] [id number] [address] Oct, [facility] [address] [facility] [id number], [place] [address] Oct, IMMUNIZATIONS No Known Immunizations SOCIAL HISTORY Never Assessed REASON FOR VISIT continued cough PLAN OF CARE VITAL SIGNS MEDICATIONS Unknown Medications RESULTS No Results PROCEDURES No Known procedures INSTRUCTIONS MEDICATIONS ADMINISTERED No Known Medications MEDICAL (GENERAL) HISTORY Type Description Date Surgical History No Surgical history information
--- OUTSIDE RECORDS SUMMARY | 2018-02-26 18:00 | XMS REPORT ---
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 Active 477586832 Problem Chronic atrial fibrillation I48.2 Active 448242929 Problem Essential hypertension I10 Active 73294919 Problem Dementia without behavioral disturbance, unspecified dementia type F03.90 Active 29316935 Problem Type 2 diabetes mellitus with chronic kidney disease, 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, 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 Active 55505437 Problem Frequent falls R29.6 Active 319551820 Problem Gastroesophageal reflux disease, esophagitis presence not specified K21.9 Active 445912579 ALLERGIES No Information ENCOUNTERS Encounter Location Date Diagnosis [facility] [address] [place] [id number] Dec, Impacted cerumen of both ears H61.23 [place] [address] [place] [id number] [place] [address] 26281- 8058 Dec, [facility] [address] [place] [id number] Dec, Dementia without behavioral disturbance, unspecified dementia type F03.90 [facility] [address] [id number] [place] [address] 12151- 6004 Nov, Dementia without behavioral disturbance, unspecified dementia type F03.90 [facility] [address] [place] [id number] Nov, [facility] [address] [place] [id number] Oct, Cough R05 [place] [id number] [place] [address] 02207- 4274 Oct, Hypokalemia E87.6 [facility] [address] [facility] [id number] [address] Oct, [employer] [address] [place] [id number] Oct, Encounter for examination for admission to intermediate Z02.2 ; Frequent falls R29.6 ; Type 2 diabetes mellitus with chronic kidney disease, without long-term current use of insulin, 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 ; Dementia without behavioral disturbance, unspecified dementia type F03.90 ; Renal insufficiency N28.9 ; Essential hypertension I10 ; Chronic atrial fibrillation I48.2 and Gastroesophageal reflux disease, esophagitis presence not specified K21.9 [place] [address] [facility] [id number], [place] [address] Oct, [place] [address] [facility] [id number] [address] 0[address] Oct, IMMUNIZATIONS No Known Immunizations SOCIAL HISTORY Never Assessed REASON FOR VISIT stop B12, Folate and B1 PLAN OF CARE VITAL SIGNS MEDICATIONS Unknown Medications RESULTS No Results PROCEDURES No Known procedures INSTRUCTIONS MEDICATIONS ADMINISTERED No Known Medications
--- OUTSIDE RECORDS SUMMARY | 2018-02-26 18:00 | XMS REPORT ---
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 Active 863857224 Problem Chronic atrial fibrillation I48.2 Active 077854026 Problem Essential hypertension I10 Active 35450202 Problem Dementia without behavioral disturbance, unspecified dementia type F03.90 Active 31332806 Problem Type 2 diabetes mellitus with chronic kidney disease, 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, 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 Active 05209141 Problem Frequent falls R29.6 Active 359785471 Problem Gastroesophageal reflux disease, esophagitis presence not specified K21.9 Active 223713244 ALLERGIES No Information ENCOUNTERS Encounter Location Date Diagnosis [facility] [address] [place] [id number] Jan, [place] [address] [place] [id number] [place] [address] 80217- 5890 Jan, Upper respiratory tract infection, unspecified type J06.9 [facility] [address] [place] [address] 53440- 2052 Jan, [facility] [address] [place] [id number] Dec, Impacted cerumen of both ears H61.23 [place] [address] [place] [address] 06991- 1185 Dec, [facility] [address] [place] [id number] Dec, Dementia without behavioral disturbance, unspecified dementia type F03.90 [facility] [address] [place] [address] 15087- 9478 Nov, Dementia without behavioral disturbance, unspecified dementia type F03.90 [employer] [address] [place] [id number] Nov, [employer] [facility] [address] [place] [id number] Oct, Cough R05 [place] [address] [place] [id number] [place] [address] [id number] [phone] Oct, Hypokalemia E87.6 [place] [address] [place] [address] 16945- 9012 14 Oct, 2017 [employer] 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 ; Dementia without behavioral disturbance, unspecified dementia type F03.90 ; Renal insufficiency N28.9 ; Essential hypertension I10 ; Chronic atrial fibrillation I48.2 and Gastroesophageal reflux disease, esophagitis presence not specified K21.9 [place] [address] [place] [id number] [place] [address] 03122- 6207 Oct, [place] [address] [place] [address] 01122- 1034 Oct, IMMUNIZATIONS No Known Immunizations SOCIAL HISTORY Never Assessed REASON FOR VISIT Routine visit PLAN OF CARE Activity Details Follow Up prn Reason: VITAL SIGNS MEDICATIONS Medication Instructions Dosage Frequency Start Date End Date Duration Status Carvedilol 12.5 MG Orally 2 times a day 1 tablet 12h Active Donepezil HCl 5 MG Orally Once a day 1 tablet at bedtime 24h Active Multivitamin Adults - Active GlyBURIDE 5 mg Orally twice a day 2 tablets 12h Active Hydrocodone-Acetaminophen 5-325 MG Orally every 6 hrs 1 tablet as needed 6h Active Tamsulosin HCl 0.4 MG Orally Once a day 1 capsule 24h Active Rivaroxaban 20 MG Orally Once a day 1 tablet with food 24h Active Lisinopril 40 MG Orally Once a day 1 tablet 24h Active Sertraline HCl 50 MG Orally Once a day 1 tablet 24h Active Nystatin 716012 UNIT/GM Externally Twice a day 1 application 12h Active RESULTS No Results PROCEDURES Procedure Date Ordered Result Body Site Stable Visit (10 minutes) Dec 25, 2017 INSTRUCTIONS MEDICATIONS ADMINISTERED No Known Medications
--- OUTSIDE RECORDS SUMMARY | 2018-02-26 18:00 | XMS REPORT ---
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 Active 196166147 Problem Chronic atrial fibrillation I48.2 Active 917376261 Problem Essential hypertension I10 Active 46906438 Problem Dementia without behavioral disturbance, unspecified dementia type F03.90 Active 21830899 Problem Type 2 diabetes mellitus with chronic kidney disease, 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, 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 Active 44971688 Problem Frequent falls R29.6 Active 750984554 Problem Gastroesophageal reflux disease, esophagitis presence not specified K21.9 Active 564704766 ALLERGIES No Information ENCOUNTERS Encounter Location Date Diagnosis [facility] [address] [place] [id number] Jan, [place] [address] [place] [id number] [place] [address] 19344- 3367 Jan, Upper respiratory tract infection, unspecified type J06.9 [facility] [address] [place] [address] 10505- 2132 Jan, [facility] [address] [place] [id number] Dec, Impacted cerumen of both ears H61.23 [facility] [address] [place] [address] 13295- 0169 Dec, [facility] [address] [place] [id number] Dec, Dementia without behavioral disturbance, unspecified dementia type F03.90 [facility] [address] [place] [address] 20757- 4096 Nov, Dementia without behavioral disturbance, unspecified dementia type F03.90 [facility] [address] [place] [id number] Nov, [facility] [address] [place] [id number] Oct, Cough R05 [place] [address] [place] [id number] [place] [address] [phone] Oct, Hypokalemia E87.6 [place] [address] [place] [address] 63735- 3984 14 Oct, 2017 [facility] [address] [place] [id number] Oct, Encounter for examination for admission to [...] reflux disease, esophagitis presence not specified K21.9 [place] [address] [place] [id number] [place] [address] 12128- 5906 Oct, [place] [address] [place] [address] 94297- 5786 Oct, IMMUNIZATIONS No Known Immunizations SOCIAL HISTORY Never Assessed REASON FOR VISIT ear cleaning PLAN OF CARE Activity Details Follow Up prn Reason: Future/Pending Procedure EAR LAVAGE VITAL SIGNS MEDICATIONS Medication Instructions Dosage Frequency Start Date End Date Duration Status Sertraline HCl 50 MG Orally Once a day 1 tablet 24h Active Tamsulosin HCl 0.4 MG Orally Once a day 1 capsule 24h Active Nystatin 382849 UNIT/GM Externally Twice a day 1 application 12h Active Multivitamin Adults - Active GlyBURIDE 5 mg Orally twice a day 2 tablets 12h Active Carvedilol 12.5 MG Orally 2 times a day 1 tablet 12h Active Donepezil HCl 5 MG Orally Once a day 1 tablet at bedtime 24h Active Rivaroxaban 20 MG Orally Once a day 1 tablet with food 24h Active Hydrocodone-Acetaminophen 5-325 MG Orally every 6 hrs 1 tablet as needed 6h Active Lisinopril 40 MG Orally Once a day 1 tablet 24h Active RESULTS No Results PROCEDURES Procedure Date Ordered Result Body Site EAR IRRIGATION Jan 01, 2018 Stable Visit (10 minutes) Jan 01, 2018 INSTRUCTIONS MEDICATIONS ADMINISTERED No Known Medications
--- OUTSIDE RECORDS SUMMARY | 2018-02-26 18:00 | XMS REPORT ---
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 Active 930411737 Problem Chronic atrial fibrillation I48.2 Active 825008432 Problem Essential hypertension I10 Active 78346018 Problem Dementia without behavioral disturbance, unspecified dementia type F03.90 Active 47136291 Problem Type 2 diabetes mellitus with chronic kidney disease, 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, 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 Active 14449930 Problem Frequent falls R29.6 Active 174292124 Problem Gastroesophageal reflux disease, esophagitis presence not specified K21.9 Active 754208750 ALLERGIES No Information ENCOUNTERS Encounter Location Date Diagnosis [facility] [address] [place] [id number] Dec, Impacted cerumen of both ears H61.23 [place] [address] [place] [id number] [place] [address] 42827- 5868 Dec, [facility] [address] [place] [id number] Dec, Dementia without behavioral disturbance, unspecified dementia type F03.90 [facility] [address] [place] [id number] [place] [address] 49077- 2869 Nov, Dementia without behavioral disturbance, unspecified dementia type F03.90 [facility] [address] [place] [id number] Nov, [facility] [address] [place] [id number] Oct, Cough R05 [place] [address] [place] [id number] [place] [address] 33014- 1470 Oct, Hypokalemia E87.6 [facility] [address] 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 [id number], [place] [address]- 8174 Oct, [place] [address] [facility] [id number], [place] [address]- 6874 Oct, IMMUNIZATIONS No Known Immunizations SOCIAL HISTORY Never Assessed REASON FOR VISIT Requests return call PLAN OF CARE VITAL SIGNS MEDICATIONS Unknown Medications RESULTS No Results PROCEDURES No Known procedures INSTRUCTIONS MEDICATIONS ADMINISTERED No Known Medications
--- OUTSIDE RECORDS SUMMARY | 2018-02-26 18:00 | XMS REPORT ---
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 Active 490922017 Problem Chronic atrial fibrillation I48.2 Active 890092704 Problem Essential hypertension I10 Active 11931194 Problem Dementia without behavioral disturbance, unspecified dementia type F03.90 Active 24598975 Problem Type 2 diabetes mellitus with chronic kidney disease, 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, 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 Active 24793285 Problem Frequent falls R29.6 Active 203643315 Problem Gastroesophageal reflux disease, esophagitis presence not specified K21.9 Active 402665830 ALLERGIES No Information ENCOUNTERS Encounter Location Date Diagnosis [facility] [address] [place] [id number] Jan, [place] [address] [place] [id number] [place] [address] 93378- 2166 Jan, Upper respiratory tract infection, unspecified type J06.9 [facility] [address] [place] [address] 75962- 8725 Jan, [facility] [address] [place] [id number] Dec, Impacted cerumen of both ears H61.23 [place] [address] [place] [address] 82409- 9076 Dec, [facility] [address] [place] [id number] Dec, Dementia without behavioral disturbance, unspecified dementia type F03.90 [facility] [address] [place] [address] 56359- 4015 Nov, Dementia without behavioral disturbance, unspecified dementia type F03.90 [facility] [address] [place] [id number] Nov, [facility] [address] [place] [id number] Oct, Cough R05 [place] [address] [place] [id number] [address]- 8466 Oct, Hypokalemia E87.6 [place] [address] [place] [address] [phone]- [phone] 14 Oct, 2017 [employer] [facility] [address] [place] [id number] 05 Oct, 2017 Encounter for examination for admission to shelter Z02.2 ; Frequent falls R29.6 ; Type 2 diabetes mellitus with chronic kidney disease, without long-term current use of insulin, 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 ; Dementia without behavioral disturbance, unspecified dementia type F03.90 ; Renal insufficiency N28.9 ; Essential hypertension I10 ; Chronic atrial fibrillation I48.2 and Gastroesophageal reflux disease, esophagitis presence not specified K21.9 [place] [address] [place] [id number] [place] [address] 95053- 8292 Oct, [place] [address] [place] [address] [phone]- [phone] Oct, IMMUNIZATIONS No Known Immunizations SOCIAL HISTORY Never Assessed REASON FOR VISIT Ear wax build up PLAN OF CARE VITAL SIGNS MEDICATIONS Unknown Medications RESULTS No Results PROCEDURES No Known procedures INSTRUCTIONS MEDICATIONS ADMINISTERED No Known Medications
--- OUTSIDE RECORDS SUMMARY | 2018-02-26 18:00 | XMS REPORT ---
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 Active 252295848 Problem Chronic atrial fibrillation I48.2 Active 139345835 Problem Essential hypertension I10 Active 96297566 Problem Dementia without behavioral disturbance, unspecified dementia type F03.90 Active 29276835 Problem Type 2 diabetes mellitus with chronic kidney disease, 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, 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 Active 59135223 Problem Frequent falls R29.6 Active 963046926 Problem Gastroesophageal reflux disease, esophagitis presence not specified K21.9 Active 608958606 ALLERGIES No Information ENCOUNTERS Encounter Location Date Diagnosis [facility] [address] [place], [place] [id number] Dec, Impacted cerumen of both ears H61.23 [place] [address] [place] [id number] [place] [address] Dec, [facility] [address] [place] [id number] Dec, Dementia without behavioral disturbance, unspecified dementia type F03.90 [facility] [address] [place] [id number] [place] [address] Nov, Dementia without behavioral disturbance, unspecified dementia type F03.90 [facility] [address] [place], [place] [id number] Nov, [facility] [address] [place] [id number] Oct, Cough R05 [place] [id number] [place] [address] Oct, Hypokalemia E87.6 [facility] [address] [facility] [id number] [address] Oct, [facility] [address] [place] [id number] Oct, Encounter for examination for admission to [facility] Z02.2 ; Frequent falls R29.6 ; Type 2 diabetes mellitus with chronic kidney disease, without long-term current use of insulin, 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 ; Dementia without behavioral disturbance, unspecified dementia type F03.90 ; Renal insufficiency N28.9 ; Essential hypertension I10 ; Chronic atrial fibrillation I48.2 and Gastroesophageal reflux disease, esophagitis presence not specified K21.9 [place] [address] [facility] [id number], [place] [address] Oct, [place] [address] [facility] [id number][place] [id number] Oct, IMMUNIZATIONS No Known Immunizations SOCIAL HISTORY Never Assessed REASON FOR VISIT Snf visit PLAN OF CARE Activity Details Follow Up prn Reason: VITAL SIGNS MEDICATIONS Medication Instructions Dosage Frequency Start Date End Date Duration Status Multivitamin Adults - Active Carvedilol 12.5 MG Orally 2 times a day 1 tablet 12h Active Donepezil HCl 5 MG Orally Once a day 1 tablet at bedtime 24h Active Nystatin 678342 UNIT/GM Externally Twice a day 1 application 12h Active Tamsulosin HCl 0.4 MG Orally Once a day 1 capsule 24h Active Sertraline HCl 50 MG Orally Once a day 1 tablet 24h Active Folic Acid 1 MG Orally Once a day 1 tablet 24h Active Hydrocodone-Acetaminophen 5-325 MG Orally every 6 hrs 1 tablet as needed 6h Active Lisinopril 40 MG Orally Once a day 1 tablet 24h Active GlyBURIDE 5 mg Orally twice a day 2 tablets 12h Active Cyanocobalamin 1000 MCG Orally twice a day 1 tablet 12h Active Thiamine HCl 100 MG Orally Once a day 1 tablet 24h Active Rivaroxaban 20 MG Orally Once a day 1 tablet with food 24h Active RESULTS No Results PROCEDURES Procedure Date Ordered Result Body Site Stable Visit (10 minutes) October 25, 2017 INSTRUCTIONS MEDICATIONS ADMINISTERED No Known Medications
--- OUTSIDE RECORDS SUMMARY | 2018-02-26 18:00 | XMS REPORT ---
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 [address] [place] [id number] Feb, Anasarca R60.1 and Pneumonia of left lower lobe due to infectious organism J18.1 [place] [id number] [place] [address] Feb, Mixed incontinence urge and stress N39.46 [place] [address] [address] Jan, [address] [address] Jan, Primary insomnia F51.01 [facility] [facility] [place] [id number] Jan, Cough R05 and Essential hypertension I10 [place] [address] [address] Jan, [facility] [address] [place] [id number] Jan, [place] [address] [place] [address] Jan, [place] [address] [place] [address] Jan, Upper respiratory tract infection, unspecified type J06.9 [place] [address] [place] [address] Jan, [facility] [address] [place] [id number] Dec, Impacted cerumen of both ears H61.23 [place] [address] [place] [id number] [place] [address]- [address] Dec, [facility] [address] [place] [id number] Dec, Dementia without behavioral disturbance, unspecified dementia type F03.90 [place] [address] [place] [address]- [address] Nov, Dementia without behavioral disturbance, unspecified dementia type F03.90 [facility] [address] [place] [id number] Nov, [facility] [address] [place] [id number] Oct, Cough R05 [place] [address] [place] [address]- [address] Oct, Hypokalemia E87.6 [place] [address] [place] [address] Oct, [facility] [address] [place] [id number] Oct, Encounter for examination for admission to jail Z02.2 ; Frequent falls R29.6 ; Type 2 diabetes mellitus with chronic kidney disease, without long-term current use of insulin, 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 ; Dementia without behavioral disturbance, unspecified dementia type F03.90 ; Renal insufficiency N28.9 ; Essential hypertension I10 ; Chronic atrial fibrillation I48.2 and Gastroesophageal reflux disease, esophagitis presence not specified K21.9 [facility] [address] [facility] [id number] [address] Oct, [facility] [address] [facility] [id number] [address] Oct, IMMUNIZATIONS No Known Immunizations SOCIAL HISTORY Never Assessed REASON FOR VISIT CU[place] [facility] PLAN OF CARE VITAL SIGNS MEDICATIONS Unknown Medications RESULTS No Results PROCEDURES No Known procedures INSTRUCTIONS MEDICATIONS ADMINISTERED No Known Medications MEDICAL (GENERAL) HISTORY Type Description Date Surgical History No Surgical history information
--- OUTSIDE RECORDS SUMMARY | 2018-02-26 18:01 | XMS REPORT ---
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, 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 Active 37465104 Problem Frequent falls R29.6 Active 292139507 Problem Gastroesophageal reflux disease, esophagitis presence not specified K21.9 Active 629682918 ALLERGIES No Information ENCOUNTERS Encounter Location Date Diagnosis [place] [address] [address] Dec, [facility] [address] [place] [id number] Dec, Dementia without behavioral disturbance, unspecified dementia type F03.90 [place] [address] [place] [id number] [place] [address] Nov, Dementia without behavioral disturbance, unspecified dementia type F03.90 [facility] [address] [place] [id number] Nov, [facility] [address] [place] [id number] Oct, Cough R05 [place] [address] [address] Oct, Hypokalemia E87.6 [place] [address] [address] Oct, [facility] [address] [place] [id number] Oct, Encounter for examination for admission to [facility] Z02.2 ; Frequent falls R29.6 ; Type 2 diabetes mellitus with chronic kidney disease, without long-term current use of insulin, 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 ; Dementia without behavioral disturbance, unspecified dementia type F03.90 ; Renal insufficiency N28.9 ; Essential hypertension I10 ; Chronic atrial fibrillation I48.2 and Gastroesophageal reflux disease, esophagitis presence not specified K21.9 [place] [address] [facility] [id number] [address] Oct, [place] [address] [facility] [id number] [address] Oct, IMMUNIZATIONS No Known Immunizations SOCIAL HISTORY Never Assessed REASON FOR VISIT refusing potassium PLAN OF CARE VITAL SIGNS MEDICATIONS Unknown Medications RESULTS No Results PROCEDURES No Known procedures INSTRUCTIONS MEDICATIONS ADMINISTERED No Known Medications
--- OUTSIDE RECORDS SUMMARY | 2018-02-26 18:01 | XMS REPORT ---
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90 [facility] [address] [place] [id number] Nov, [facility] [address] [place] [id number] Oct, Cough R05 [place] [address] [address] Oct, Hypokalemia E87.6 [place] [address] [address] Oct, [facility] [address] [place] [id number] Oct, Encounter for examination for admission to halfway Z02.2 ; Frequent falls R29.6 ; Type 2 diabetes mellitus with chronic kidney disease, without long-term current use of insulin, 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 ; Dementia without behavioral disturbance, unspecified dementia type F03.90 ; Renal insufficiency N28.9 ; Essential hypertension I10 ; Chronic atrial fibrillation I48.2 and Gastroesophageal reflux disease, esophagitis presence not specified K21.9 [facility] [address] [facility] [id number], [place] [address] Oct, [facility] [address] [facility] [id number], [place] [address] Oct, IMMUNIZATIONS No Known Immunizations SOCIAL HISTORY Never Assessed REASON FOR VISIT Medication List Updated PLAN OF CARE VITAL SIGNS MEDICATIONS Medication Instructions Dosage Frequency Start Date End Date Duration Status Cyanocobalamin 1000 MCG Orally twice a day 1 tablet 12h Active Multivitamin Adults - Active Folic Acid 1 MG Orally Once a day 1 tablet 24h Active Carvedilol 12.5 MG Orally 2 times a day 1 tablet 12h Active Nystatin 749711 UNIT/GM Externally Twice a day 1 application 12h Active Thiamine HCl 100 MG Orally Once a day 1 tablet 24h Active Rivaroxaban 20 MG Orally Once a day 1 tablet with food 24h Active GlyBURIDE 5 mg Orally twice a day 2 tablets 12h Active Hydrocodone-Acetaminophen 5-325 MG Orally every 6 hrs 1 tablet as needed 6h Active Lisinopril 40 MG Orally Once a day 1 tablet 24h Active Sertraline HCl 50 MG Orally Once a day 1 tablet 24h Active Donepezil HCl 5 MG Orally Once a day 1 tablet at bedtime 24h Active Klor-Con M20 20 MEQ Orally Once a day 1 tablet with food 24h Active Tamsulosin HCl 0.4 MG Orally Once a day 1 capsule 24h Active RESULTS No Results PROCEDURES No Known procedures INSTRUCTIONS MEDICATIONS ADMINISTERED No Known Medications
--- OUTSIDE RECORDS SUMMARY | 2018-02-26 18:01 | XMS REPORT ---
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, 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 Active 29838660 Problem Frequent falls R29.6 Active 992926367 Problem Gastroesophageal reflux disease, esophagitis presence not specified K21.9 Active 967278648 ALLERGIES No Information ENCOUNTERS Encounter Location Date Diagnosis [facility] [address] [place], [place] [id number] Dec, [place] [address] [place] [id number] [place] [address] Nov, Dementia without behavioral disturbance, unspecified dementia type F03.90 [facility] [address] [place] [id number] Nov, [facility] [address] [place] [id number] Oct, Cough R05 [place] [address] [place] [address] Oct, Hypokalemia E87.6 [place] [address] [place] [id number] [place] [address] Oct, [facility] [address] [place] [id number] Oct, Encounter for examination for admission to custodial Z02.2 ; Frequent falls R29.6 ; Type 2 diabetes mellitus with chronic kidney disease, without long-term current use of insulin, 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 ; Dementia without behavioral disturbance, unspecified dementia type F03.90 ; Renal insufficiency N28.9 ; Essential hypertension I10 ; Chronic atrial fibrillation I48.2 and Gastroesophageal reflux disease, esophagitis presence not specified K21.9 [facility] [address] [facility] [id number] [place] [address] Oct, [facility] [address] [facility] [id number] [place] [address] Oct, IMMUNIZATIONS No Known Immunizations SOCIAL HISTORY Never Assessed REASON FOR VISIT [place] Admission PLAN OF CARE VITAL SIGNS MEDICATIONS Medication Instructions Dosage Frequency Start Date End Date Duration Status Cyanocobalamin 1000 MCG Orally twice a day 1 tablet 12h Active Nystatin 155885 UNIT/GM Externally Twice a day 1 application 12h Active Folic Acid 1 MG Orally Once a day 1 tablet 24h Active Carvedilol 12.5 MG Orally 2 times a day 1 tablet 12h Active Multivitamin Adults - Active Klor-Con M20 20 MEQ Orally Once a day 1 tablet with food 24h Active Tamsulosin HCl 0.4 MG Orally Once a day 1 capsule 24h Active Lisinopril 40 MG Orally Once a day 1 tablet 24h Active GlyBURIDE 5 mg Orally twice a day 2 tablets with breakfast or the first main meal of the day 12h Active Hydrocodone-Acetaminophen 5-325 MG Orally every 6 hrs 1 tablet as needed 6h Active Thiamine HCl 100 MG Orally Once a day 1 tablet 24h Active Donepezil HCl 5 MG Orally Once a day 1 tablet at bedtime 24h Active Rivaroxaban 20 MG Orally Once a day 1 tablet with food 24h Active Sertraline HCl 50 MG Orally Once a day 1 tablet 24h Active RESULTS No Results PROCEDURES No Known procedures INSTRUCTIONS MEDICATIONS ADMINISTERED No Known Medications
--- OUTSIDE RECORDS SUMMARY | 2018-02-26 18:01 | XMS REPORT ---
Author Author DARIEL MENDEZ 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 Active 06874446 Problem Frequent falls R29.6 Active 235438078 Problem Gastroesophageal reflux disease, esophagitis presence not specified K21.9 Active 709456160 ALLERGIES No Information ENCOUNTERS Encounter Location Date Diagnosis [facility] [address] [place] [id number] Dec, Dementia without behavioral disturbance, unspecified dementia type F03.90 [address] [place] [address] Nov, Dementia without behavioral disturbance, unspecified dementia type F03.90 [facility] [address] [place] [id number] Nov, [facility] [address] [place] [id number] Oct, Cough R05 [place] [address] [place] [id number] [address] Oct, Hypokalemia E87.6 [address] [place] [address] Oct, [facility] [address] [place] [id number] Oct, Encounter for examination for admission to alf Z02.2 ; Frequent falls R29.6 ; Type 2 diabetes mellitus with chronic kidney disease, without long-term current use of insulin, 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 ; Dementia without behavioral disturbance, unspecified dementia type F03.90 ; Renal insufficiency N28.9 ; Essential hypertension I10 ; Chronic atrial fibrillation I48.2 and Gastroesophageal reflux disease, esophagitis presence not specified K21.9 [facility] [address] [facility] [id number] [place] [address] Oct, [facility] [address] [facility] [id number], [place] [address] Oct, IMMUNIZATIONS No Known Immunizations SOCIAL HISTORY Never Assessed REASON FOR VISIT New Admission PLAN OF CARE Activity Details Follow Up prn Reason: VITAL SIGNS MEDICATIONS Medication Instructions Dosage Frequency Start Date End Date Duration Status Carvedilol 12.5 MG Orally 2 times a day 1 tablet 12h Active GlyBURIDE 5 mg Orally twice a day 2 tablets with breakfast or the first main meal of the day 12h Active Cyanocobalamin 1000 MCG Orally twice a day 1 tablet 12h Active Donepezil HCl 5 MG Orally Once a day 1 tablet at bedtime 24h Active Nystatin 609175 UNIT/GM Externally Twice a day 1 application 12h Active Thiamine HCl 100 MG Orally Once a day 1 tablet 24h Active Tamsulosin HCl 0.4 MG Orally Once a day 1 capsule 24h Active Multivitamin Adults - Active Hydrocodone-Acetaminophen 5-325 MG Orally every 6 hrs 1 tablet as needed 6h Active Lisinopril 40 MG Orally Once a day 1 tablet 24h Active Rivaroxaban 20 MG Orally Once a day 1 tablet with food 24h Active Folic Acid 1 MG Orally Once a day 1 tablet 24h Active Klor-Con M20 20 MEQ Orally Once a day 1 tablet with food 24h Active Sertraline HCl 50 MG Orally Once a day 1 tablet 24h Active RESULTS No Results PROCEDURES No Known procedures INSTRUCTIONS MEDICATIONS ADMINISTERED No Known Medications
--- OUTSIDE RECORDS SUMMARY | 2018-02-26 18:01 | XMS REPORT ---
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, 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 Active 07603766 Problem Frequent falls R29.6 Active 115173018 Problem Gastroesophageal reflux disease, esophagitis presence not specified K21.9 Active 680927660 ALLERGIES No Information ENCOUNTERS Encounter Location Date Diagnosis [facility] [address] [place], [place] [id number] Dec, Dementia without behavioral disturbance, unspecified dementia type F03.90 [address] [place] [id number] Nov, Dementia without behavioral disturbance, unspecified dementia type F03.90 [facility] [address] [place], [place] [id number] Nov, [facility] [address] [place] [id number] Oct, Cough R05 [place] [address] [place] [id number] [address] Oct, Hypokalemia E87.6 [address] [place] [address] Oct, [facility] [address] [place], [place] [id number] Oct, Encounter for examination for admission to prison Z02.2 ; Frequent falls R29.6 ; Type 2 diabetes mellitus with chronic kidney disease, without long-term current use of insulin, 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 ; Dementia without behavioral disturbance, unspecified dementia type F03.90 ; Renal insufficiency N28.9 ; Essential hypertension I10 ; Chronic atrial fibrillation I48.2 and Gastroesophageal reflux disease, esophagitis presence not specified K21.9 [facility] [address] [facility] [id number] [address] Oct, [facility] [address] [facility] [id number], [place] [address] Oct, IMMUNIZATIONS No Known Immunizations SOCIAL HISTORY Never Assessed REASON FOR VISIT Pt fall PLAN OF CARE VITAL SIGNS MEDICATIONS No Known Medications RESULTS No Results PROCEDURES No Known procedures INSTRUCTIONS MEDICATIONS ADMINISTERED No Known Medications
[2018-02-26] MEDS ORDERED: NS IV 1000 ML 1,000 ML IV SCH (19:06)
--- NOTE | 2018-02-26 19:13 | ED Respiratory ---
General Stated Complaint: WEAK Source: patient, [facility] records, caregiver Exam Limitations: no limitations History of Present Illness Date Seen by Provider: Feb 26, 2018 Time Seen by Provider: 18:52 Initial Comments The patient presents to the ER by private conveyance from [facility] with chief complaint that he's felt weak for the past week or so. He was worked up with labs, urinalysis and a chest x-ray yesterday by Dr. Alonso outpatient and found to have a left lower lobe pneumonia. He got off antibiotics couple weeks ago for the same thing. He is not sure if he is on antibiotics now and records do not indicate this. His caregiver who transported him here today all day and not sure what he is on. He has not been eating or drinking the last couple days he is diabetic continue taking his medications but has not had his evening medicines today. He is denying any pain or nausea except for some achiness in his bones. He says he had a fall about for 5 days ago and was evaluated by nursing staff. He is on Xarelto and has some bruising on his chest especially the left side as well as some bruising on his right elbow. He denies taking any breathing treatments or having a history of COPD but he was recently in the last week put on oxygen for low saturations routinely about 2-3 L per nasal cannula. Allergies and Home Medications Allergies Coded Allergies: Cephalosporins (Verified Allergy, Unknown, 02/26/18) Penicillins (Verified Allergy, Unknown, 02/26/18) amlodipine (Verified Allergy, Unknown, 02/26/18) metformin (Verified Allergy, Unknown, 02/26/18) Patient Home Medication List Home Medication List Reviewed: Yes Review of Systems Review of Systems Constitutional: No chills, No fever; malaise, weakness EENTM: No ear discharge, No ear pain Respiratory: No cough, No short of breath, No wheezing Cardiovascular: No chest pain Gastrointestinal: No abdominal pain, No constipation, No diarrhea Genitourinary: No discharge, No dysuria Musculoskeletal: No back pain, No joint pain Past Abztjku-Dqayrf-Lieqzs Hx Patient Social History Alcohol Use: Denies Use Recreational Drug Use: No Smoking Status: Former Smoker Type Used: Cigarettes Recent Foreign Travel: No Contact w/Someone Who Travel: No Physical Exam Capillary Refill : Height: '" Weight: lbs. oz. kg; BMI Method: General Appearance: WD/WN, mild distress Eyes: Bilateral Eye Normal Inspection, Bilateral Eye PERRL, Bilateral Eye EOMI HEENT: PERRL/EOMI, normal ENT inspection, TMs normal, pharynx normal ( Oropharynx is dry), other (Negative for Hardy sign, hemotympanum, raccoon eyes) Neck: non-tender, full range of motion, normal inspection Respiratory: chest non-tender, lungs clear, no respiratory distress, no accessory muscle use, decreased breath sounds Cardiovascular: normal peripheral pulses, regular rate, rhythm, other (Chronic bilateral lower extremity edema 1+ pitting) Gastrointestinal: normal bowel sounds, non tender, soft Extremities: normal range of motion, normal capillary refill Neurologic/Psychiatric: alert, normal mood/affect, oriented x 3 Skin: ecchymosis (Right elbow and chest) Focused Exam Lactate Level 02/26/18 19:29: Lactic Acid Level 0.92 Lactic Acid Level Laboratory Tests Test 02/26/18 19:29 Lactic Acid Level 0.92 MMOL/L (0.50-2.00) Progress/Results/Core Measures Suspected Sepsis SIRS Temperature: Pulse: Respiratory Rate: Laboratory Tests 02/26/18 19:29: White Blood Count 8.5 Blood Pressure / Mean: 02/26/18 19:29: Lactic Acid Level 0.92 Laboratory Tests 02/26/18 19:29: Creatinine 1.58H, Platelet Count 158, Total Bilirubin 0.4 Results/Orders Lab Results Laboratory Tests Test 02/26/18 19:02 02/26/18 19:29 Range/Units Glucometer 232 H 70-110 MG/DL White Blood Count 8.5 4.3-11.0 10^3/uL Red Blood Count 4.18 L 4.35-5.85 10^6/uL Hemoglobin 12.9 L 13.3-17.7 G/DL Hematocrit 40 40-54 % Mean Corpuscular Volume 95 80-99 FL Mean Corpuscular Hemoglobin 31 25-34 PG Mean Corpuscular Hemoglobin Concent 33 32-36 G/DL Red Cell Distribution Width 13.8 10.0-14.5 % Platelet Count 158 130-400 10^3/uL Mean Platelet Volume 10.3 7.4-10.4 FL Neutrophils (%) (Auto) 88 H 42-75 % Lymphocytes (%) (Auto) 4 L 12-44 % Monocytes (%) (Auto) 5 0-12 % Eosinophils (%) (Auto) 2 0-10 % Basophils (%) (Auto) 0 0-10 % Neutrophils # (Auto) 7.5 1.8-7.8 X 10^3 Lymphocytes # (Auto) 0.3 L 1.0-4.0 X 10^3 Monocytes # (Auto) 0.5 0.0-1.0 X 10^3 Eosinophils # (Auto) 0.2 0.0-0.3 10^3/uL Basophils # (Auto) 0.0 0.0-0.1 10^3/uL Neutrophils % (Manual) 90 % Lymphocytes % (Manual) 2 % Monocytes % (Manual) 3 % Eosinophils % (Manual) 2 % Basophils % (Manual) 0 % Band Neutrophils 3 % Blood Morphology Comment NORMAL Sodium Level 132 L 135-145 MMOL/L Potassium Level 5.2 H 3.6-5.0 MMOL/L Chloride Level 97 L 98-107 MMOL/L Carbon Dioxide Level 25 21-32 MMOL/L Anion Gap 10 5-14 MMOL/L Blood Urea Nitrogen 85 H 7-18 MG/DL Creatinine 1.58 H 0.60-1.30 MG/DL Estimat Glomerular Filtration Rate 43 BUN/Creatinine Ratio 54 Glucose Level 246 H 70-105 MG/DL Lactic Acid Level 0.92 0.50-2.00 MMOL/L Calcium Level 8.9 8.5-10.1 MG/DL Corrected Calcium 9.7 8.5-10.1 MG/DL Total Bilirubin 0.4 0.1-1.0 MG/DL Aspartate Amino Transf (AST/SGOT) 28 5-34 U/L Alanine Aminotransferase (ALT/SGPT) 22 0-55 U/L Alkaline Phosphatase 72 40-136 U/L B-Type Natriuretic Peptide 1839.4 H <100.0 PG/ML Total Protein 6.2 L 6.4-8.2 GM/DL Albumin 3.0 L 3.2-4.5 GM/DL My Orders Orders - BEE FENG Ua Culture If Indicated (02/26/18 18:13) Cbc With Automated Diff (02/26/18 18:13) Comprehensive Metabolic Panel (02/26/18 18:13) Saline Lock/Iv-Start (10/23/18 19:06) Ns Iv 1000 Ml (Sodium Chloride 0.9%) (02/26/18 19:06) Ct Head Wo (02/26/18 19:13) Levofloxacin 500 Mg/100 Ml Iv (Levaquin (02/26/18 19:15) Manual Differential (02/26/18 19:29) Medications Given in ED Current Medications Medications Dose Ordered Sig/Sue Route Start Time Stop Time Status Last Admin Dose Admin Levofloxacin/ Dextrose 100 ml @ 100 mls/hr ONCE ONCE IV 02/26/18 19:15 02/26/18 20:14 DC 02/26/18 19:41 100 MLS/HR Vital Signs/I&O Capillary Refill : Progress Note : Time: 19:11 Progress Note Patient has made his wishes known to be DO NOT RESUSCITATE. Certainly his low- energy could be from being sick with a pneumonia but could also represent even subdural hematoma given the fact he has a blood thinner on board and had a fall 4 days ago sprayed a CT of his head. We'll get a chest x-ray EKG since his heart rate is slow in the 40s probably because of the beta blockers. We'll give him a liter fluids start get a BNP. He denies a history of congestive heart failure and is not on his medical history from the [facility] but he's got chronic edema which is probably gravity dependent edema. Clinically however he appears dry. Blood cultures. There is no previous echocardiogram the system. The nurse took report states that they just treating him with Levaquin for a week late last week for the pneumonia. The x-ray we have from 02/25/18, yesterday demonstrates are still left lower lobe pneumonia with some pulmonary edema. BNP was around 1600. We don 't have any baseline BNP or previous labs for him in the ER. ECG Initial ECG Impression Date: Feb 26, 2018 Initial ECG Impression Time: 19:20 Initial ECG Rate: 44 Initial ECG Rhythm: S.Lance Initial ECG Intervals: Normal Initial ECG Impression: Normal, Nonspecific Changes Initial ECG Comparisson: No Previous ECG Available Comment Low voltage but no ST elevation or depression sinus bradycardia Diagnostic Imaging Diagonstic Imaging: Xray Plain Films/CT/US/NM/MRI: chest (1v) Reviewed: Reviewed by Me Diagonstic Imaging: CT Plain Films/CT/US/NM/MRI: head Comments NAME: RICHARD GAO REC#: [id number] PHYSICIAN: BEE FENG MD CC: MG FREGOSO DO; BEE FENG Page 2 of 2 RADIOLOGY REPORT VIA [facility], [facility]. [place], [place] CC: MG FREGOSO DO; BEE FENG Page 1 of 1 RADIOLOGY REPORT NAME: RICHARD GAO [facility] REC#: [id number] PT STATUS: REG ER : 1940 PHYSICIAN: BEE FENG MD ADMIT DATE: 02/26/18/ER Signed Date of Exam: 02/26/18 CT HEAD WO PROCEDURE: CT head without contrast. TECHNIQUE: Multiple contiguous axial images were obtained through the brain without the use of intravenous contrast. INDICATION: Weakness, altered mental status. COMPARISON: None FINDINGS: There are diffuse atrophic changes with prominence of the ventricles and sulci. There are scattered areas of decreased attenuation, nonspecific but likely changes of chronic small vessel ischemic disease. There is otherwise normal otoole-white differentiation. No abnormal areas of attenuation to suggest edema from ischemia. There is no midline shift or mass effect. No evidence for acute intracranial hemorrhage or abnormal extra-axial fluid collection. Probable small syrinx at the proximal cord. Intracranial vascular calcification without hyperdense MCA sign. Bony calvarium is intact. Paranasal sinuses are clear. Mastoid air cells also appear clear. IMPRESSION: 1. No CT evidence for acute intracranial abnormality. 2. Age-related atrophic changes with changes of small vessel ischemic disease. Dictated by: Dictated on workstation # [id number] Dict: 02/26/182007 Trans: 02/26/182009 Interpreted by: MG FREGOSO DO Electronically signed by: MG FREGOSO DO 02/26/182009 Reviewed: Reviewed by Me Departure Communication (Admissions) Time/Spoke to Admitting Phy: 20:40 Discussed case lab imaging findings with Dr. Mathur and she liked cardiology on board to help decide fluid balance issues and a consult pulmonology in the morning for potential recurrent pneumonia. Time/Spoke to Consulting Phy: 20:[address] Spears and he agrees to consult on the patient and would like 40 of Lasix 1 now. Impression Primary Impression: Congestive heart failure Qualified Codes: I50.9 - Heart failure, unspecified Additional Impression: Pneumonia Qualified Codes: J18.9 - Pneumonia, unspecified organism Disposition: ADMITTED INPATIENT Condition: Stable Admissions Decision to Admit Reason: Admit from ER (General) Decision to Admit/Date: Feb 26, 2018 Time/Decision to Admit Time: 20:50 Copy Copies To 1: EDMUNDO MAHMOOD TITUS J Feb 26, 2018 19:13
[2018-02-26] MEDS ORDERED: LEVOFLOXACIN 500 MG/100 ML IV 100 ML IV ONE (19:15)
[2018-02-26 19:36] LABS: BASOPHILS % (AUTO) 0 % (0-10); EOSINOPHILS # (AUTO) 0.2 10^3/uL (0.0-0.3); EOSINOPHILS % (AUTO) 2 % (0-10); HEMATOCRIT 40 % (40-54); HEMOGLOBIN 12.9 G/DL (13.3-17.7); LYMPHOCYTES # (AUTO) 0.3 X 10^3 (1.0-4.0); LYMPHOCYTES % (AUTO) 4 % (12-44); MEAN CORPUSCULAR HEMOGLOBIN 31 PG (25-34); MEAN CORPUSCULAR HGB CONC 33 G/DL (32-36); MEAN CORPUSCULAR VOLUME 95 FL (80-99); MEAN PLATELET VOLUME 10.3 FL (7.4-10.4); MONOCYTES # (AUTO) 0.5 X 10^3 (0.0-1.0); MONOCYTES % (AUTO) 5 % (0-12); NEUTROPHILS # (AUTO) 7.5 X 10^3 (1.8-7.8); NEUTROPHILS % (AUTO) 88 % (42-75); PLATELET COUNT 158 10^3/uL (130-400); RED BLOOD COUNT 4.18 10^6/uL (4.35-5.85); RED CELL DISTRIBUTION WIDTH 13.8 % (10.0-14.5); WHITE BLOOD COUNT 8.5 10^3/uL (4.3-11.0)
[2018-02-26 19:52] LABS: BAND NEUTROPHILS 3 %; BASOPHILS % (MANUAL) 0 %; EOSINOPHILS % (MANUAL) 2 %; LYMPHOCYTES % (MANUAL) 2 %; MONOCYTES % (MANUAL) 3 %; NEUTROPHILS % (MANUAL) 90 %; RBC MORPH NORMAL
[2018-02-26 20:05] LABS: BILIRUBIN,TOTAL 0.4 MG/DL (0.1-1.0); CALCIUM 8.9 MG/DL (8.5-10.1); CREATININE SERUM 1.58 MG/DL (0.60-1.30); POTASSIUM 5.2 MMOL/L (3.6-5.0); TOTAL PROTEIN 6.2 GM/DL (6.4-8.2)
--- NOTE | 2018-02-26 20:12 | Diagnostic Imaging Report ---
PROCEDURE: CT head without contrast. TECHNIQUE: Multiple contiguous axial images were obtained through the brain without the use of intravenous contrast. INDICATION: Weakness, altered mental status. COMPARISON: None FINDINGS: There are diffuse atrophic changes with prominence of the ventricles and sulci. There are scattered areas of decreased attenuation, nonspecific but likely changes of chronic small vessel ischemic disease. There is otherwise normal otoole-white differentiation. No abnormal areas of attenuation to suggest edema from ischemia. There is no midline shift or mass effect. No evidence for acute intracranial hemorrhage or abnormal extra-axial fluid collection. Probable small syrinx at the proximal cord. Intracranial vascular calcification without hyperdense MCA sign. Bony calvarium is intact. Paranasal sinuses are clear. Mastoid air cells also appear clear. IMPRESSION: 1. No CT evidence for acute intracranial abnormality. 2. Age-related atrophic changes with changes of small vessel ischemic disease. Dictated by: Dictated on workstation # [id number]
--- NOTE | 2018-02-26 20:36 | Diagnostic Imaging Report ---
INDICATION: Weakness x1 week. TECHNIQUE: Single view chest 8:22 PM. CORRELATION STUDY: None FINDINGS: Cardiac enlargement. Vasculature slightly prominent. There is presence of small bilateral pleural effusions. Left lung base largely obscured by the cardiac enlargement. Staple projects over the right glenoid. IMPRESSION: 1. Significant severity cardiac enlargement with borderline vasculature. Probable small effusions. Dictated by: Dictated on workstation # [id number]
[2018-02-26 21:00] LABS: BILIRUBIN,URINE NEGATIVE (NEGATIVE); CLARITY,URINE CLEAR; COLOR,URINE YELLOW; GLUCOSE, URINE (UA) NEGATIVE (NEGATIVE); KETONES,URINE NEGATIVE (NEGATIVE); LEUKOCYTE ESTERASE ,URINE 1+ (NEGATIVE); NITRITE,URINE NEGATIVE (NEGATIVE); PH,URINE 5 (5-9); PROTEIN,URINE 2+ (NEGATIVE); UROBILINOGEN,URINE 1 MG/DL (NORMAL)
[2018-02-26] MEDS ORDERED: FUROSEMIDE 40 MG/4 ML INJ (LASIX) IVP ONE (21:15)
[2018-02-26 21:16] LABS: BACTERIA,URINE TRACE /HPF; CALCIUM OXALATE CRYSTALS,UR RARE /LPF; HYALINE CASTS, URINE >50 /LPF; RBC,URINE RARE /HPF
[2018-02-26] MEDS ORDERED: ONDANSETRON 4 MG/2 ML (SDV) Z0FRAN IV PRN (23:00)
[2018-02-26] MEDS ORDERED: HYDROcodone/APAP 5 MG/325 MG (LORTAB) TAB PO PRN (23:00)
[2018-02-26] MEDS ORDERED: ACETAMINOPHEN 500 MG TAB (TYLENOL) PO PRN (23:00)
[2018-02-26] MEDS ORDERED: RT-ALBUTEROL/IPRATROPIUM 3 ML (DUONEB) VIAL INH PRN (23:45)
[2018-02-27] VITALS: BP 144/65
[2018-02-27 04:00] VITALS: BP 135/62
[2018-02-27 05:42] LABS: BASOPHILS % (AUTO) 0 % (0-10); EOSINOPHILS # (AUTO) 0.2 10^3/uL (0.0-0.3); EOSINOPHILS % (AUTO) 2 % (0-10); HEMATOCRIT 41 % (40-54); LYMPHOCYTES # (AUTO) 0.3 X 10^3 (1.0-4.0); LYMPHOCYTES % (AUTO) 4 % (12-44); MEAN CORPUSCULAR HEMOGLOBIN 30 PG (25-34); MEAN CORPUSCULAR HGB CONC 32 G/DL (32-36); MEAN CORPUSCULAR VOLUME 95 FL (80-99); MEAN PLATELET VOLUME 10.2 FL (7.4-10.4); MONOCYTES # (AUTO) 0.5 X 10^3 (0.0-1.0); MONOCYTES % (AUTO) 6 % (0-12); NEUTROPHILS # (AUTO) 7.1 X 10^3 (1.8-7.8); NEUTROPHILS % (AUTO) 88 % (42-75); PLATELET COUNT 150 10^3/uL (130-400); RED BLOOD COUNT 4.32 10^6/uL (4.35-5.85); RED CELL DISTRIBUTION WIDTH 13.9 % (10.0-14.5); WHITE BLOOD COUNT 8.1 10^3/uL (4.3-11.0)
[2018-02-27 05:55] LABS: CALCIUM 8.8 MG/DL (8.5-10.1); CREATININE SERUM 1.41 MG/DL (0.60-1.30)
[2018-02-27] MEDS: inSUlin ASPART (NovoLOG) 1 UNIT/0.01 ML (CHARGE PER UNIT) SC SCH ×4 (06:00→20:36)
[2018-02-27] MEDS: RT-ALBUTEROL/IPRATROPIUM 3 ML (DUONEB) VIAL INH SCH ×4 (06:35→18:43)
[2018-02-27] MEDS ORDERED: FLU QUADRIvalent (5+ YOA) 2018-2019 (AFLURIA) 0.5 ML IM ONE (07:00)
[2018-02-27] MEDS ORDERED: CARVEDILOL 12.5 MG (COREG) TABLET PO SCH (07:00)
--- NOTE | 2018-02-27 07:02 | Pulmonary Consultation ---
History of Present Illness History of Present Illness Date of Consultation 02/27/18 06:58 Time Seen by Provider: 10:41 Date of Admission History of Present Illness 77yo with hx of oxygen dependent COPD admitted secondary to increasing weakness and lethargy from [facility]. Pt was found to have CHFAE. No fever, CP, palpitations, or syncope. he does have excessive edema bilaterally. PT was recently treated with antibiotics 2 wks ago for pneumonia. He is on Xarelto chronically. Allergies and Home Medications Allergies Coded Allergies: Cephalosporins (Verified Allergy, Unknown, 02/26/18) Penicillins (Verified Allergy, Unknown, 02/26/18) amlodipine (Verified Allergy, Unknown, 02/26/18) metformin (Verified Allergy, Unknown, 02/26/18) Home Medications Acetaminophen/Diphenhydramine 1 Each Tablet, 1 TAB PO HS, (Reported) Carvedilol 25 Mg Tablet, 25 MG PO BID, (Reported) Docusate Sodium 100 Mg Capsule, 100 MG PO Q12H PRN for CONSTIPATION-1ST LINE, ( Reported) Donepezil HCl 5 Mg Tablet, 5 MG PO DAILY, (Reported) Finasteride 5 Mg Tablet, 5 MG PO DAILY, (Reported) Glyburide 5 Mg Tablet, 5 MG PO BID, (Reported) Guaifenesin 600 Mg Tab.er.12h, 600 MG PO Q12H PRN for COUGH, (Reported) Hydrocodone/Acetaminophen 1 Each Tablet, 1 TAB PO Q6H PRN for PAIN-MODERATE, ( Reported) Multivitamin with Minerals 1 Each Tablet, 1 TAB PO HS, (Reported) Rivaroxaban 20 Mg Tablet, 20 MG PO DAILY, (Reported) Sertraline HCl 50 Mg Tablet, 50 MG PO DAILY, (Reported) Tamsulosin HCl 0.4 Mg Cap, 0.4 MG PO BID, (Reported) Past Aedmvma-Hjkncj-Bfkfpa Hx Patient Social History Alcohol Use: Past History Recreational Drug Use: No Smoking Status: Former Smoker Type Used: Cigarettes 2nd Hand Smoke Exposure: No Recent Foreign Travel: No Contact w/Someone Who Travel: No Recent Infectious Disease Expo: No Recent Hopitalizations: No Physical Abuse: No Sexual Abuse: No Seasonal Allergies Seasonal Allergies: No Past Medical History Respiratory: Yes (pulm edema, plural effusion) Pneumonia Currently Using CPAP: No Currently Using BIPAP: No Cardiac: Yes Atrial Fibrillation, Hypertension Neurological: Yes (wernickes encephalopathy) Genitourinary: Yes (chronic kidney disease) Benign Prostatic Hyperpl Gastrointestinal: Yes Gastroesophageal Reflux Musculoskeletal: Yes (weakness) Diabetes, Non-Insulin dep Are Your Blood Sugars Over 250: No HEENT: No Cancer: No Psychosocial: Yes Depression Integumentary: No Blood Disorders: No Adverse Reaction/Blood Tranf: No Review of Systems Time Seen by Provider: 10:45 Sepsis Event Evaluation Height, Weight, BMI Height: 5'10.00" Weight: 200lbs. 2.0oz. 90.781982vx; 28.4 BMI Method:Stated Exam Exam Vital Signs Date Time Temp Pulse Resp B/P (MAP) Pulse Ox O2 Delivery O2 Flow Rate FiO2 02/27/18 06:30 92 Nasal Cannula 2.00 02/27/18 04:00 96.8 42 12 135/62 (86) 96 Nasal Cannula 2.00 02/27/18 01:40 52 02/27/18 00:18 40 02/27/18 00:00 96.6 45 10 144/65 (91) 95 Nasal Cannula 2.00 02/26/18 22:20 Nasal Cannula 2.00 02/26/18 21:41 96.2 42 15 115/71 (86) 96 Nasal Cannula 2.00 02/26/18 19:00 95.7 45 15 147/67 (93) 82 Room Air I & O 02/27/18 07:00 Intake Total 1100 ml Balance 1100 ml Height & Weight Height: 5'10.00" Weight: 200lbs. 2.0oz. 90.025583fh; 28.4 BMI Method:Stated General Appearance: Mild Distress HEENT: PERRL/EOMI, Normal ENT Inspection, Pharynx Normal Neck: Full Range of Motion, Supple Respiratory: No Accessory Muscle Use, No Respiratory Distress, Crackles, Decreased Breath Sounds Cardiovascular: Regular Rate, Rhythm Capillary Refill: Less Than 3 Seconds Gastrointestinal: normal bowel sounds, non tender, soft Extremity: Normal Capillary Refill Neurologic/Psychiatric: Alert Skin: Normal Color, Warm/Dry Lymphatic: No Adenopathy Results Lab Laboratory Tests 02/26/18 19:29 02/27/18 05:07 Assessment/Plan Assessment/Plan SOB with CHFAE - Doubt PNA -D/C abx -Continue Lasix -Cardiology consulted AL BRANDT DO Feb 27, 2018 07:01
--- NOTE | 2018-02-27 07:02 | Consultation-Cardiology ---
HPI-Cardiology Cardiology Consultation Date of Consultation 02/27/18 Date of Admission Time Seen by Provider: 06:54 Indication: Congestive Heart Failure HPI 77 years old gentleman who was treated for UTI recently. Was having increasing weakness and lethargy. Sent from the senior living to the emergency room and noted to be in congestive heart failure. Upper my evaluation patient was sleeping. Denied any chest pain. No palpitation. No syncope. He was noted to be bradycardic. Did not have any fever. He had significant edema. Was unable to provide any further history at this time. Home Medications & Allergies Allergies: Coded Allergies: Cephalosporins (Verified Allergy, Unknown, 02/26/18) Penicillins (Verified Allergy, Unknown, 02/26/18) amlodipine (Verified Allergy, Unknown, 02/26/18) metformin (Verified Allergy, Unknown, 02/26/18) Home Medication List Reviewed: Yes YIN-Refaeh-Awuveh Hx Patient Social History Alcohol Use: Past History Recreational Drug Use: No Smoking Status: Former Smoker Type Used: Cigarettes 2nd Hand Smoke Exposure: No Recent Foreign Travel: No Recent Infectious Disease Expo: No Recent Hopitalizations: No Physical Abuse Screen: No Sexual Abuse: No Past Medical History Past medical history as described below Family Medical History Family Medical Hx Noncontributory to his current condition Review of Systems Constitutional: malaise, weakness, other (Unable to provide full review of system) Respiratory: see HPI Cardiovascular: see HPI; No chest pain; edema; No Hx of Intervention, No palpitations, No syncope, No vascular heart diseas, No other Reviewed Test Results Reviewed Test Results Lab Laboratory Tests Test 02/26/18 19:02 02/26/18 19:29 02/26/18 20:50 02/27/18 05:07 Range/Units Glucometer 232 H 70-110 MG/DL White Blood Count 8.5 8.1 4.3-11.0 10^3/uL Red Blood Count 4.18 L 4.32 L 4.35-5.85 10^6/uL Hemoglobin 12.9 L 13.0 L 13.3-17.7 G/DL Hematocrit 40 41 40-54 % Mean Corpuscular Volume 95 95 80-99 FL Mean Corpuscular Hemoglobin 31 30 25-34 PG Mean Corpuscular Hemoglobin Concent 33 32 32-36 G/DL Red Cell Distribution Width 13.8 13.9 10.0-14.5 % Platelet Count 158 150 130-400 10^3/uL Mean Platelet Volume 10.3 10.2 7.4-10.4 FL Neutrophils (%) (Auto) 88 H 88 H 42-75 % Lymphocytes (%) (Auto) 4 L 4 L 12-44 % Monocytes (%) (Auto) 5 6 0-12 % Eosinophils (%) (Auto) 2 2 0-10 % Basophils (%) (Auto) 0 0 0-10 % Neutrophils # (Auto) 7.5 7.1 1.8-7.8 X 10^3 Lymphocytes # (Auto) 0.3 L 0.3 L 1.0-4.0 X 10^3 Monocytes # (Auto) 0.5 0.5 0.0-1.0 X 10^3 Eosinophils # (Auto) 0.2 0.2 0.0-0.3 10^3/uL Basophils # (Auto) 0.0 0.0 0.0-0.1 10^3/uL Neutrophils % (Manual) 90 % Lymphocytes % (Manual) 2 % Monocytes % (Manual) 3 % Eosinophils % (Manual) 2 % Basophils % (Manual) 0 % Band Neutrophils 3 % Blood Morphology Comment NORMAL Sodium Level 132 L 134 L 135-145 MMOL/L Potassium Level 5.2 H 5.0 3.6-5.0 MMOL/L Chloride Level 97 L 99 98-107 MMOL/L Carbon Dioxide Level 25 23 21-32 MMOL/L Anion Gap 10 12 5-14 MMOL/L Blood Urea Nitrogen 85 H 81 H 7-18 MG/DL Creatinine 1.58 H 1.41 H 0.60-1.30 MG/DL Estimat Glomerular Filtration Rate 43 49 BUN/Creatinine Ratio 54 57 Glucose Level 246 H 163 H 70-105 MG/DL Lactic Acid Level 0.92 0.50-2.00 MMOL/L Calcium Level 8.9 8.8 8.5-10.1 MG/DL Corrected Calcium 9.7 8.5-10.1 MG/DL Total Bilirubin 0.4 0.1-1.0 MG/DL Aspartate Amino Transf (AST/SGOT) 28 5-34 U/L Alanine Aminotransferase (ALT/SGPT) 22 0-55 U/L Alkaline Phosphatase 72 40-136 U/L B-Type Natriuretic Peptide 1839.4 H <100.0 PG/ML Total Protein 6.2 L 6.4-8.2 GM/DL Albumin 3.0 L 3.2-4.5 GM/DL Urine Color YELLOW Urine Clarity CLEAR Urine pH 5 5-9 Urine Specific [place] 1.020 1.016-1.022 Urine Protein 2+ H NEGATIVE Urine Glucose (UA) NEGATIVE NEGATIVE Urine Ketones NEGATIVE NEGATIVE Urine Nitrite NEGATIVE NEGATIVE Urine Bilirubin NEGATIVE NEGATIVE Urine Urobilinogen 1 NORMAL MG/DL Urine Leukocyte Esterase 1+ H NEGATIVE Urine RBC (Auto) NEGATIVE NEGATIVE Urine RBC RARE /HPF Urine WBC 2-5 /HPF Urine Crystals PRESENT H /LPF Urine Calcium Oxalate Crystals RARE H /LPF Urine Bacteria TRACE /HPF Urine Casts PRESENT /LPF Urine Hyaline Casts >50 H /LPF Urine Coarse Granular Casts RARE H /LPF Urine Mucus SMALL H /LPF Urine Culture Indicated NO Test 02/27/18 05:36 Range/Units Glucometer 147 H 70-110 MG/DL Physical Exam Vital Signs Vital Signs - First Documented 02/26/18 02/26/18 19:00 21:41 Temp 95.7 Pulse 45 Resp 15 B/P (MAP) 147/67 (93) Pulse Ox 82 O2 Delivery Room Air O2 Flow Rate 2.00 Capillary Refill : Less Than 3 Seconds Height, Weight, BMI Height: 5'10.00" Weight: 200lbs. 2.0oz. 90.385572iu; 28.4 BMI Method:Stated General Appearance: WD/WN, Mild Distress Eyes: Bilateral Eye Normal Inspection, Bilateral Eye PERRL, Bilateral Eye EOMI HEENT: TMs Normal, Normal ENT Inspection, Pharynx Normal Neck: Normal Inspection, Non Tender, Supple, Carotid Bruit Respiratory: Chest Non Tender, Normal Breath Sounds, No Accessory Muscle Use, No Respiratory Distress, Crackles Cardiovascular: Normal Peripheral Pulses, Bradycardia, Systolic Murmur, Gallop/ S3 Gastrointestinal: Normal Bowel Sounds, No Organomegaly, No Pulsatile Mass, Non Tender, Soft Back: Normal Inspection, No CVA Tenderness, No Vertebral Tenderness Extremity: Normal Capillary Refill, Normal Inspection, Normal Range of Motion, Non Tender, No Calf Tenderness, Pedal Edema Neurologic/Psychiatric: Alert, Oriented x3, No Motor/Sensory Deficits, Normal Mood/Affect Skin: Normal Color, Warm/Dry Lymphatic: No Adenopathy A/P-Cardiology Admission Diagnosis Congestive heart failure Chronic atrial fibrillation Bradycardia Hypertension Assessment/Plan Congestive heart failure, acute left ventricular systolic dysfunction, patient will be started on IV Lasix. Continue to monitor, evaluate 2-D echocardiogram. Monitor electrolytes and BNP. Atrial fibrillation with bradycardia, probably chronic. He has been maintained on Xarelto. I do not have any previous record. I will discontinue Coreg at this time and monitor heart rate once his heart rate is better I will start at a lower dose of beta blockers Hypertension, continue to monitor blood pressure and restart medication as tolerating Generalized weakness and loss of energy, could be secondary to his bradycardia. Status post recent UTI, treated Diabetes mellitus, followed and managed by primary care physician Chronic kidney disease, continue to monitor creatinine level Clinical Quality Measures DVT/VTE Risk/Contraindication: Risk Factor Score Per Nursin RFS Level Per Nursing on Admit: 4+=Very High JAIRON WILSON MD Feb 27, 2018 07:02
[2018-02-27 08:00] VITALS: BP 137/60
[2018-02-27] MEDS ORDERED: CARV25TA PO (08:46)
[2018-02-27] MEDS ORDERED: DONE5TAB30 PO (08:46)
[2018-02-27] MEDS ORDERED: DOCU-143 PO (08:46)
[2018-02-27] MEDS ORDERED: GLYB5TAB6 PO (08:46)
[2018-02-27] MEDS ORDERED: GUAI600T86 PO (08:46)
[2018-02-27] MEDS ORDERED: MULT-166 PO (08:46)
[2018-02-27] MEDS ORDERED: SERT50TA9 PO (08:46)
[2018-02-27] MEDS ORDERED: ACET-2267 PO (08:46)
[2018-02-27] MEDS ORDERED: RIVA20TA PO (08:46)
[2018-02-27] MEDS ORDERED: TAMS0.4C98 PO (08:46)
[2018-02-27] MEDS ORDERED: FINA5TAB6 PO (08:46)
[2018-02-27] MEDS ORDERED: HYDR-3812 PO (08:46)
[2018-02-27] MEDS ORDERED: ACET-575 PO (08:47)
[2018-02-27] MEDS: FUROSEMIDE 40 MG/4 ML INJ (LASIX) IVP SCH ×2 (08:55→16:53)
--- NOTE | 2018-02-27 10:46 | History & Physical-Hospitalist ---
History of Present Illness HPI/Chief Complaint CC: Recurrent pneumonia HPI: This is a 77-year-old white male group home patient of [facility] who presented to the ER with shortness of breath and fatigue and confusion. He had chest completed antibiotics for pneumonia as an outpatient but began having the same symptoms of cough and fever and confusion. He was found to have bilateral pneumonia and elevated BNP consistent with volume overload. Per his son at the bedside he is had quite a decline in the last several weeks at [facility] group home and he is DO NOT RESUSCITATE per his living will and his son is his power of tax attorney but considering he has not wanted to get up and around and per dissipate in therapy he is become bedridden and severely debilitated. Patient states he just wants to be left alone and I did speak with his son about end-of-life care and hospice and he is agreeable since he understands the end-stage process of his father's life. Source: patient, RN/MD Exam Limitations: no limitations Date Seen 02/27/18 Time Seen by a Provider: 10:00 Attending Physician Rita Askew DO PCP Srinivasa Osman MD Referring Physician Date of Admission Feb 26, 2018 at 21:07 Home Medications & Allergies Home Medications Reviewed patient Home Medication Reconciliation performed by pharmacy medication reconciliations chiller technician and/or nursing. Patients Allergies have been reviewed. Allergies Allergies Coded Allergies Cephalosporins (Verified Allergy, Unknown, 02/26/18) Penicillins (Verified Allergy, Unknown, 02/26/18) amlodipine (Verified Allergy, Unknown, 02/26/18) metformin (Verified Allergy, Unknown, 02/26/18) Past Cbyrmto-Sbijql-Huxbvm Hx Past Med/Social Hx: Reviewed Nursing Past Med/Soc Hx, Reviewed and Corrections made Patient Social History Marrital Status: single Employed/Student: retired ([employer]) Alcohol Use: Past History Recreational Drug Use: No Smoking Status: Former Smoker Type Used: Cigarettes 2nd Hand Smoke Exposure: No Physical Abuse Screen: No Sexual Abuse: No Recent Foreign Travel: No Contact w/other who traveled: No Recent Hopitalizations: No Recent Infectious Disease Expo: No Seasonal Allergies Seasonal Allergies: No Past Medical History Respiratory: Pneumonia Currently Using CPAP: No Currently Using BIPAP: No Cardiac: Atrial Fibrillation, Hypertension Neurological: Dementia Genitourinary: Benign Prostatic Hyperpl Gastrointestinal: Gastroesophageal Reflux Musculoskeletal: Arthritis, Chronic Back Pain Endocrine: Diabetes, Non-Insulin dep Are Your Blood Sugars Over 250: No Psychosocial: Depression History of Blood Disorders: No Adverse Reaction to Blood Osman: No Family History Diabetes Review of Systems Constitutional: see HPI, malaise, weakness EENTM: no symptoms reported Respiratory: cough, dyspnea on exertion, short of breath, wheezing Cardiovascular: no symptoms reported Gastrointestinal: no symptoms reported Genitourinary: no symptoms reported Musculoskeletal: no symptoms reported Skin: no symptoms reported Psychiatric/Neurological: No Symptoms Reported All Other Systems Reviewed Negative Unless Noted: Yes Physical Exam Physical Exam Vital Signs Vital Signs - First Documented 02/26/18 02/26/18 19:00 21:41 Temp 95.7 Pulse 45 Resp 15 B/P (MAP) 147/67 (93) Pulse Ox 82 O2 Delivery Room Air O2 Flow Rate 2.00 Capillary Refill : Less Than 3 Seconds Height, Weight, BMI Height: 5'10.00" Weight: 199lbs. 5.0oz. [id number]; 28.4 BMI Method:Stated General Appearance: No Apparent Distress, WD/WN, Chronically ill Eyes: Bilateral Eye Normal Inspection, Bilateral Eye PERRL HEENT: PERRL/EOMI, Normal ENT Inspection, Pharynx Normal Neck: Full Range of Motion, Normal Inspection, Non Tender, Supple, Carotid Bruit Respiratory: Chest Non Tender, No Accessory Muscle Use, No Respiratory Distress , Crackles, Decreased Breath Sounds, Wheezing Cardiovascular: Regular Rate, Rhythm, No Edema, No Gallop, No JVD, No Murmur, Normal Peripheral Pulses Gastrointestinal: Normal Bowel Sounds, No Organomegaly, No Pulsatile Mass, Non Tender, Soft Back: Normal Inspection, No CVA Tenderness, No Vertebral Tenderness Extremity: Normal Capillary Refill, Normal Inspection, Normal Range of Motion, Non Tender, No Calf Tenderness, No Pedal Edema Neurologic/Psychiatric: Alert, No Motor/Sensory Deficits, Normal Mood/Affect, Depressed Affect Skin: Normal Color, Warm/Dry Lymphatic: No Adenopathy Results Results/Procedures Labs Laboratory Tests 02/26/18 19:29 02/27/18 05:07 Patient resulted labs reviewed. Assessment/Plan Admission Diagnosis Assessment: Recurrent pneumonia New onset volume overload Dementia DM OOC CRI Declined status Plan: DNR Hospice consult Home [facility] Admission Status: Inpatient Order (span 2 midnights) Reason for Inpatient Admission: Recurrent pneumonia will need 3 days of IV abx and heart failure will need w/u Diagnosis/Problems Diagnosis/Problems (1) Pneumonia Status: Acute Qualifiers: Pneumonia type: due to unspecified organism Laterality: unspecified laterality Lung location: unspecified part of lung Qualified Codes: J18.9 - Pneumonia, unspecified organism (2) CHF exacerbation Status: Acute (3) Dementia Status: Chronic (4) Renal insufficiency Status: Chronic (5) Poor prognosis Status: Chronic (6) DNR (do not resuscitate) Status: Chronic Clinical Quality Measures DVT/VTE Risk/Contraindication: Risk Factor Score Per Nursin RFS Level Per Nursing on Admit: 4+=Very High RITA ASKEW DO Feb 27, 2018 10:45
[2018-02-27] MEDS ORDERED: guaiFENesin (MUCINEX) 600 MG TAB PO PRN (11:00)
[2018-02-27] MEDS ORDERED: DOCUSATE SODIUM 100 MG (COLACE) CAP PO PRN (11:00)
[2018-02-27] MEDS ORDERED: HYDROcodone/APAP 5 MG/325 MG (LORTAB) TAB PO PRN (11:15)
[2018-02-27 12:22] VITALS: BP 147/68
[2018-02-27 15:40] VITALS: BP 132/63
[2018-02-27] MEDS ORDERED: NS 250 ML (IVPB) BAG IV ONE (15:45)
[2018-02-27] MEDS ORDERED: IOHEXOL 350 MG/ML 100 ML (OMNIPAQUE 350) VIAL IV ONE (15:45)
[2018-02-27] MEDS: glyBURIDE 5 MG (MICRONASE) TAB PO SCH (16:51)
[2018-02-27] MEDS ORDERED: RIVAROXABAN 20 MG TABLET (XARELTO) PO SCH (17:00)
--- NOTE | 2018-02-27 17:26 | Diagnostic Imaging Report ---
PROCEDURE: CT angiography of the chest with contrast. TECHNIQUE: Multiple contiguous axial images were obtained through the chest after uneventful bolus administration of intravenous contrast. 2D reconstructed CTA MIP acquisitions were also performed. INDICATION: Pulmonary hypertension. FINDINGS: There are some areas of lobar and segmental pulmonary arterial wall thickening suggestive of some recanalized chronic marginal clot. There is incompletely occlusive filling defect within the left lower lobe pulmonary arterial branch. There are bilateral pleural effusions nonloculated with subjacent dependent atelectasis in the left greater than right lower lobes. The heart is enlarged. There is a small circumferential pericardial effusion. There is generalized integumentary edema and at least moderate volume of peritoneal fluid in the visualized upper abdomen. The atherosclerotic aorta is nonaneurysmal. There are coronary arterial atherosclerotic calcifications. IMPRESSION: 1. Incompletely occlusive clot within left lower lobe pulmonary arterial lobar branch with some additional areas of mural thickening of the lópez of the pulmonary arterial branches which may reflect chronic recanalized clot. Cardiomegaly, pericardial effusion, integumentary edema and abdominal ascites without loculated collection. 2. Basilar partial atelectasis, greater left. Nonaneurysmal aortic and coronary arterial atherosclerotic calcifications. Results phoned to the ordering physician. Dictated by: Dictated on workstation # [id number]
[2018-02-27] MEDS ORDERED: LEVOFLOXACIN 750 MG/150 ML IV 150 ML IV SCH (19:00)
[2018-02-27 20:00] VITALS: BP 146/64
[2018-02-27] MEDS: CARVEDILOL 12.5 MG (COREG) TABLET PO SCH (20:36)
[2018-02-27] MEDS: TAMSULOSIN 0.4 MG (FLOMAX) CAP PO SCH (20:37)
[2018-02-27] MEDS ORDERED: diphenhydrAMINE 25 MG TAB (BENADRYL) PO SCH (21:00)
[2018-02-27] MEDS ORDERED: MULTIVIT W/MINERALS TAB (THERAGRAN M) PO SCH (21:00)
[2018-02-27] MEDS ORDERED: ACETAMINOPHEN 500 MG TAB (TYLENOL) PO SCH (21:00)
[2018-02-28 00:38] VITALS: BP 133/58
[2018-02-28 04:15] VITALS: BP 163/71
[2018-02-28] MEDS: FUROSEMIDE 40 MG/4 ML INJ (LASIX) IVP SCH (06:28)
[2018-02-28] MEDS: inSUlin ASPART (NovoLOG) 1 UNIT/0.01 ML (CHARGE PER UNIT) SC SCH ×2 (06:28→11:31)
[2018-02-28] MEDS: glyBURIDE 5 MG (MICRONASE) TAB PO SCH (06:42)
[2018-02-28] MEDS: RT-ALBUTEROL/IPRATROPIUM 3 ML (DUONEB) VIAL INH SCH ×2 (07:09→10:40)
--- NOTE | 2018-02-28 07:34 | Cardiology Progress Note ---
Subjective Date Seen by Provider: Feb 28, 2018 Time Seen by Provider: 07:31 Subjective/Events-last exam Patient is laying down in bed, lethargic, no new complaint. Edema is slightly better. Review of Systems General: No Chills, No Night Sweats; Fatigue, Malaise; No Appetite, No Other HEENT: No Head Aches, No Visual Changes, No Eye Pain, No Ear Pain, No Dysphasia , No Sinus Congestion, No Post Nasal Drip, No Sore Throat, No Other Pulmonary: Dyspnea; No Cough, No Pleuritic Chest Pain, No Other Cardiovascular: Edema; No: Chest Pain, Palpitations, Orthopnea, Paroxysmal Noc. Dyspnea, Lt Headedness, Other Focused Exam Lactate Level 02/26/18 19:29: Lactic Acid Level 0.92 Objective-Cardiology Exam Last Set of Vital Signs Vital Signs 02/28/18 04:15 Temp 97.0 Pulse 54 Resp 18 B/P (MAP) 163/71 (101) Pulse Ox 96 O2 Delivery Nasal Cannula O2 Flow Rate 2.00 Capillary Refill : Less Than 3 Seconds I&O Intake and Output 02/28/18 00:00 Intake Total 1600 ml Output Total 825 ml Balance 775 ml Intake Oral 1600 ml Output Urine Total 825 ml # Voids 2 # Bowel Movements 1 General: Mild Distress, Other (Lethargic) HEENT: Atraumatic Neck: No Thyromegaly Lungs: Normal Air Movement, Other (Rhonchi) Heart: Normal S1, Normal S2, No Murmurs, Other (Irregular rhythm) Abdomen: Normal Bowel Sounds, Soft, No Tenderness, No Hepatosplenomegaly, No Masses Extremities: No Clubbing, No Cyanosis, Normal Pulses, Other (Mild edema) Skin: No Rashes, No Breakdown, No Significant Lesion Neuro: Other (Lethargic) Psych/Mental Status: Other (Lethargic and confused) Results Lab Laboratory Tests Test 02/27/18 10:57 02/27/18 15:36 02/27/18 20:04 02/28/18 05:13 Range/Units Glucometer 192 H 256 H 220 H 65 L 70-110 MG/DL Test 02/28/18 06:38 Range/Units Glucometer 111 H 70-110 MG/DL A/P-Cardiology Admission Diagnosis Congestive heart failure Chronic atrial fibrillation Bradycardia Hypertension Assessment/Plan Congestive heart failure, acute right ventricular systolic dysfunction with severe pulmonary hypertension secondary to multiple pulmonary embolism. Patient is maintained on Xarelto. Appeared to have multiple PE. CT scan report was reviewed with radiologist Atrial fibrillation with bradycardia, probably chronic, heart rate is slightly better. Off beta blockers at this time. Continue to monitor Hypertension, continue to monitor blood pressure and restart medication as tolerating Generalized weakness and loss of energy, could be secondary to his bradycardia. Status post recent UTI, treated Diabetes mellitus, followed and managed by primary care physician Chronic kidney disease, continue to monitor creatinine level Clinical Quality Measures DVT/VTE Risk/Contraindication: Risk Factor Score Per Nursin RFS Level Per Nursing on Admit: 4+=Very High JAIRON WILSON MD Feb 28, 2018 07:34
[2018-02-28 08:02] VITALS: BP 130/61
[2018-02-28] MEDS: TAMSULOSIN 0.4 MG (FLOMAX) CAP PO SCH (08:05)
[2018-02-28] MEDS: CARVEDILOL 12.5 MG (COREG) TABLET PO SCH (08:05)
[2018-02-28] MEDS ORDERED: DONEPEZIL 5 MG (ARICEPT) TAB PO SCH (09:00)
[2018-02-28] MEDS ORDERED: FINASTERIDE (PROSCAR) 5 MG TAB PO SCH (09:00)
[2018-02-28] MEDS ORDERED: SERTRALINE 50 MG (ZOLOFT) TABLET PO SCH (09:00)
[2018-02-28] MEDS ORDERED: RIVAROXABAN 20 MG TABLET (XARELTO) PO SCH (09:00)
[2018-02-28] MEDS ORDERED: IPRA3AMP31 INH (10:57)
[2018-02-28] MEDS ORDERED: FURO-125 PO (10:57)
[2018-02-28] MEDS ORDERED: HYDR-3812 PO (10:57)
--- NOTE | 2018-02-28 10:58 | Discharge Summary-Hospitalist ---
Diagnosis/Chief Complaint Date of Admission Feb 26, 2018 at 21:07 Date of Discharge Discharge Date: Feb 28, 2018 Admission Diagnosis Assessment: Recurrent pneumonia New onset volume overload Dementia DM OOC CRI Declined status Plan: DNR Hospice consult Home meds Discharge Diagnosis (1) Pulmonary embolism Status: Chronic (2) CHF exacerbation Status: Acute (3) Dementia Status: Chronic (4) Renal insufficiency Status: Chronic (5) Poor prognosis Status: Chronic (6) DNR (do not resuscitate) Status: Chronic Discharge Summary Discharge Physical Exam Allergies: Coded Allergies: Cephalosporins (Verified Allergy, Unknown, 02/26/18) Penicillins (Verified Allergy, Unknown, 02/26/18) amlodipine (Verified Allergy, Unknown, 02/26/18) metformin (Verified Allergy, Unknown, 02/26/18) Vitals & I&Os Vital Signs Date Time Temp Pulse Resp B/P (MAP) Pulse Ox O2 Delivery O2 Flow Rate FiO2 02/28/18 10:41 96 Nasal Cannula 2.00 02/28/18 08:02 96.5 44 10 130/61 (84) General Appearance: No Apparent Distress, Chronically ill Neurologic/Psychiatric: Disoriented Hospital Course Hospital course: This is a 77-year-old white male shelter patient at [facility] the present and to the emergency room with dyspnea. He had just completed outpatient antibiotics for pneumonia and had worsened with increased edema of the lower extremities and hypoxia. Chest x -ray revealed recurrent pneumonia so Pulmonology and cardiology were both consulted and workup ensued. IV diuresis was helpful clearing the airspace disease so antibiotics were discontinued considering there is no evidence of definitive pneumonia. CT scan of the chest revealed pulmonary embolism but upon further questioning the patient's son this was diagnosed in September from his regular physician in [place], [place]. He had been on anticoagulation for the pulmonary embolism and atrial fibrillation so CT scan pulmonary embolism was assessed to be chronic and not a failure of the anticoagulation as originally thought. Living will ordered DO NOT RESUSCITATE and upon further assessment and interview with the son the patient was in such severe disability and had no motivation for any meaningful recovery and after another conversation it was decided that he would be enrolled in hospice and sent back to the [facility] for supportive care. Labs (last 24 hrs) Laboratory Tests 02/27/18 15:36: Glucometer 256H 02/27/18 20:04: Glucometer 220H 02/28/18 05:13: Glucometer 65L 02/28/18 06:38: Glucometer 111H 02/28/18 11:06: Glucometer 216H Microbiology 02/26/18 Blood Culture - Preliminary, Resulted Jeremy Alanis Neg (BAR HELPER) Patient resulted labs reviewed. Pending Labs Laboratory Tests 02/28/18 05:13: Glucometer 65 02/28/18 06:38: Glucometer 111 02/28/18 11:06: Glucometer 216 Discussion & Recommendations Discharge Planning: <30 minutes discharge planning Discharge Home Medications: Active Scripts Active Lasix (Furosemide) 20 Mg Tablet 20 Mg PO BID Iprat-Albut 0.5-3(2.5) mg/3 ml (Ipratropium/Albuterol Sulfate) 3 Ml Ampul.neb 3 Ml INH RTQ4HR PRN Hydrocodone-Acetamin 5-325 mg (Hydrocodone/Acetaminophen) 1 Each Tablet 1 Tab PO Q6H PRN Reported Acetaminophen Pm Caplet (Acetaminophen/Diphenhydramine) 1 Each Tablet 1 Tab PO HS Flomax (Tamsulosin HCl) 0.4 Mg Cap 0.4 Mg PO BID Sertraline HCl 50 Mg Tablet 50 Mg PO DAILY Xarelto (Rivaroxaban) 20 Mg Tablet 20 Mg PO DAILY Finasteride 5 Mg Tablet 5 Mg PO DAILY Multivitamins with Minerals (Multivitamin with Minerals) 1 Each Tablet 1 Tab PO HS Guaifenesin ER (Guaifenesin) 600 Mg Tab.er.12h 600 Mg PO Q12H PRN Glyburide 5 Mg Tablet 5 Mg PO BID Donepezil HCl 5 Mg Tablet 5 Mg PO DAILY Colace (Docusate Sodium) 100 Mg Capsule 100 Mg PO Q12H PRN Carvedilol 25 Mg Tablet 25 Mg PO BID Instructions to patient/family Please see electronic discharge instructions given to patient. Clinical Quality Measures DVT/VTE Risk/Contraindication: Risk Factor Score Per Nursin RFS Level Per Nursing on Admit: 4+=Very High Problem Qualifiers (1) Pulmonary embolism: Pulmonary embolism type: other Chronicity: unspecified Acute cor pulmonale presence: with acute cor pulmonale Qualified Codes: I26.09 - Other pulmonary embolism with acute cor pulmonale FERMIN ASKEW DO Feb 28, 2018 10:58
[2018-02-28] MEDS ORDERED: LEVOFLOXACIN 750 MG TAB (LEVAQUIN) PO SCH (11:00)
--- NOTE | 2018-02-28 11:06 | Pulmonary Progress Note ---
Sepsis Event Evaluation Height, Weight, BMI Height: " Weight: 194lbs. 1.0oz. 88.421291qu; 28.4 BMI Method:Stated Focused Exam Lactate Level 02/26/18 19:29: Lactic Acid Level 0.92 Exam Exam Vital Signs Date Time Temp Pulse Resp B/P (MAP) Pulse Ox O2 Delivery O2 Flow Rate FiO2 02/28/18 10:41 96 Nasal Cannula 2.00 02/28/18 08:05 96 Nasal Cannula 2.00 02/28/18 08:02 96.5 44 10 130/61 (84) 94 Nasal Cannula 2.00 02/28/18 07:00 53 02/28/18 04:15 97.0 54 18 163/71 (101) 96 Nasal Cannula 2.00 02/28/18 01:00 43 02/28/18 00:38 97.5 53 16 133/58 (83) 94 Nasal Cannula 2.00 02/27/18 20:00 97.8 56 16 146/64 (91) 95 Nasal Cannula 2.00 02/27/18 20:00 96 Nasal Cannula 2.00 02/27/18 19:00 43 02/27/18 18:49 95 Nasal Cannula 2.00 02/27/18 15:40 97.4 51 16 132/63 (86) 95 Nasal Cannula 2.00 02/27/18 14:51 91 Nasal Cannula 2.00 02/27/18 13:00 41 02/27/18 12:22 96.6 43 14 147/68 (94) 96 Nasal Cannula 2.00 02/27/18 11:02 Nasal Cannula 2.00 I & O 02/28/18 07:00 Intake Total 1275 ml Output Total 825 ml Balance 450 ml Height & Weight Height: 5'" Weight: 194lbs. 1.0oz. 88.616876mx; 28.4 BMI Method:Stated General Appearance: Mild Distress HEENT: PERRL/EOMI, Normal ENT Inspection, Pharynx Normal Neck: Full Range of Motion, Supple Respiratory: No Accessory Muscle Use, No Respiratory Distress, Crackles, Decreased Breath Sounds Cardiovascular: Regular Rate, Rhythm Capillary Refill: Less Than 3 Seconds Gastrointestinal: normal bowel sounds, non tender, soft Extremity: Normal Capillary Refill Neurologic/Psychiatric: Alert Skin: Normal Color, Warm/Dry Lymphatic: No Adenopathy Results Lab Laboratory Tests 02/26/18 19:29 02/27/18 05:07 Assessment/Plan Assessment/Plan SOB with [facility] - Doubt PNA -Continue Lasix -Cardiology consulted 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 Upon further questioning pt was dx with PE at [facility] in September. -PT has been on Xarelto without missing any doses. -Pt's Sp02 is 95% with just 2 liters of oxygen to maintain Dementia/debility Chronic Afib CKD DM AL BRANDT DO Feb 28, 2018 11:06
== END 2018-02-28 12:25 | disposition hospice, inpatient (51) | DRG 291 ==
LOC: ER 17:50 → 4TH 21:07
PROVIDERS: ADMIT Internal Medicine; ATTEND Internal Medicine
DX: I13.0 Hypertensive heart and chronic kidney disease with heart failure and stage 1 through stage 4 chronic kidney disease, or unspecified chronic kidney disease (principal); I50.21 Acute systolic (congestive) heart failure; N18.3 Chronic kidney disease, stage 3 (moderate); E51.2 Wernicke's encephalopathy; I27.82 Chronic pulmonary embolism; I27.24 Chronic thromboembolic pulmonary hypertension; Z66 Do not resuscitate; R00.1 Bradycardia, unspecified; I48.2 Chronic atrial fibrillation; E11.65 Type 2 diabetes mellitus with hyperglycemia; N40.0 Benign prostatic hyperplasia without lower urinary tract symptoms; F03.90 Unspecified dementia, unspecified severity, without behavioral disturbance, psychotic disturbance, mood disturbance, and anxiety; K21.9 Gastro-esophageal reflux disease without esophagitis; F32.9 Major depressive disorder, single episode, unspecified; R53.81 Other malaise; S20.212A Contusion of left front wall of thorax, initial encounter; S50.01XA Contusion of right elbow, initial encounter; W19.XXXA Unspecified fall, initial encounter; Z79.84 Long term (current) use of oral hypoglycemic drugs; Z87.891 Personal history of nicotine dependence; Z79.01 Long term (current) use of anticoagulants; Z87.440 Personal history of urinary (tract) infections
CPT/HCPCS: 36415; 70450; 71045; 71275; 80048; 80053; 81000; 82962; 83605; 83880; 85007; 85025; 85027; 87040; 93005; 93306; 94640; 96361; 96365; 96375